=== PATIENT | male | born 1960 | race Caucasian/White ===

== ENCOUNTER 2016-09-23 07:56 | Emergency (ER) | payer OTHER ==
[2016-09-23 08:07] VITALS: BP 107/88; PULSE 98; TEMP 98.1; BMI 30.8
--- NOTE | 2016-09-23 09:20 | PDOC ---
[id number] 4d G TUBE Time Seen by Provider: 09/23/16 08:09 History Source: Correction Records (spoke with nurse) Exam Limitations: No Limitations - History of Present Illness Initial Comments: 09/23/16 09:07 55-year-old male with history of tracheotomy G-tube, and is currently residing at [facility] was sent over for G-tube replacement/evaluation. As per nurse patient had difficulty with receiving free water via gravity and then with a syringe. As per staff some of the meds need to be crushed and unsure if it's meds or not. Patient arrives with no complaints of abdominal pain which he is able to shake his head no when questioned. patient with history of CHF and A. fib. Timing/Duration: 1-3 hours Severity: mild Associated Symptoms: reports: denies symptoms Past History - Past Medical History Allergies/Adverse Reactions: Allergies Allergy/AdvReac Type Severity Reaction Status Date / Time No Known Allergies Allergy Verified 09/23/16 08:07 Home Medications: Ambulatory Orders Albuterol 2.5/Ipratropium 0.5 [Duoneb -] 1 neb NEB Q4H PRN #0 vial 08/17/13 Thyroid [[place] Thyroid] 90 mg PO DAILY #0 tablet 08/17/13 Amino Acids/Protein Hydrolys [Prostat Sugar-Free Packet -] 30 ml GT TID packet 07/29/16 Aspirin Coated [Ecotrin -] 81 mg PO DAILY tablet.ec 07/29/16 Metoclopramide Oral Soln [Reglan Oral Solution -] 10 mg GT TIDAC #0 udc Metoprolol Tartrate Injection [Lopressor Injection -] 5 mg IVPUSH Q4H PRN #0 vial 07/29/16 Polyethylene Glycol 3350 [Miralax 119 gm Btl -] 17 gm NGT DAILY bottle Anemia: No Asthma: No Cancer: No Cardiac Disorders: Yes (CHF, A-Fib) CVA: No COPD: No (trach on ventimask 8L) CHF: Yes Dementia: No Diabetes: No GI Disorders: Yes (gerd) Disorders: No HTN: No Hypercholesterolemia: No Liver Disease: No Seizures: No Thyroid Disease: No - Surgical History Abdominal Surgery: No Appendectomy: No Cardiac Surgery: No Cholecystectomy: No Lung Surgery: No Neurologic Surgery: Yes (brain surgery: subdural hematoma) Orthopedic Surgery: No - Immunization History Immunization Up to Date: No - Psycho/Social/Smoking Cessation Hx Anxiety: No Suicidal Ideation: No Smoking Status: No Smoking History: Unknown if ever smoked Have you smoked in the past 12 months: No Number of Cigarettes Smoked Daily: 0 If you are a former smoker, when did you quit?: 1997 Cigars Per Day: 0 Information on smoking cessation initiated: No Hx Alcohol Use: No Drug/Substance Use Hx: No Substance Use Type: None Hx Substance Use Treatment: No Patient Lives Alone: No Lives with/in: detention Review of Systems - Review of Systems Able to Perform ROS?: Yes Constitutional: No: Symptoms Reported HEENTM: No: Symptoms Reported Respiratory: No: Symptoms reported Cardiac (ROS): No: Symptoms Reported ABD/GI: Yes: See HPI : No: Symptoms Reported Musculoskeletal: No: Symptoms Reported Integumentary: No: Symptoms Reported Neurological: No: Symptoms reported *Physical Exam - Vital Signs Last Vital Signs Temp Pulse Resp BP Pulse Ox 98.1 F 98 H 18 107/88 93 L 09/23/16 08:02 09/23/16 08:02 09/23/16 08:02 09/23/16 08:02 09/23/16 08:02 - Physical Exam General Appearance: Yes: Nourished, Appropriately Dressed. No: Apparent Distress HEENT: positive: EOMI, DEMETRIO. negative: Pale Conjunctivae Neck: positive: Supple Respiratory/Chest: positive: Lungs Clear, Normal Breath Sounds, Other ( tracheostomy with copious amount of clear secretions). negative: Respiratory Distress, Accessory Muscle Use, Crackles, Rhonchi, Wheezing Cardiovascular: positive: Regular Rhythm, Regular Rate. negative: Murmur Gastrointestinal/Abdominal: positive: Soft, Other (left upper quadrant G-tube site intact). negative: Tenderness Extremity: positive: Normal Capillary Refill. negative: Pedal Edema Integumentary: positive: Normal Color, Warm, Moist Neurologic: positive: Normal Mood/Affect, Motor Strength 5/5 (upper extremities mobile) ED Treatment Course - RADIOLOGY Radiology Studies Ordered: Category Date Time Status CHEST X-RAY PORTABLE* [RAD] Stat Radiology 09/23/16 08:33 Taken Medical Decision Making - Medical Decision Making 09/23/16 09:03 She was sent here for G-tube replacement/evaluation. As per nurse's patient was unable to receive [place] via G-tube secondary to increased pressure. Patient upon arrival required suctioning by the respiratory therapist O2 sat was 93% on Venturi mask. Patient then required a second suctioning by me which I received a thick clear whitish secretions via trach using a 14 Thai catheter. I spoke to nurse for the possibility of patient being placed on [place] which will decrease patient secretions. Chest x-ray will be obtained secondary to O2 sat although nurse states this is patient's baseline. As per nurse patient is currently on Levaquin for a left lower lobe infiltrate. 09/23/16 09:35 Chest x-ray shows no acute findings. Patient will be sent back to [facility]. *DC/Admit/Observation/Transfer Diagnosis at time of Disposition: Gastrostomy tube dependent - Discharge Dispostion Disposition: HOME Condition at time of disposition: Good - Referrals Referrals: Nicholas Layton MD [Primary Care Provider] - - Patient Instructions Printed Discharge Instructions: DI on Tracheotomy-Adult, How to Care for Your PEG Tube Additional Instructions: The G-tube was patent and was able to withdraw fluids without difficulty. I do recommend considering a medication to decrease his tracheostomy secretions such as Robinul as he requires frequent suctioning. Chest x-ray shows no acute process.
== END 2016-09-23 10:30 ==
LOC: JER 07:56
DX: Z43.0 Encounter for attention to tracheostomy (principal); I48.91 Unspecified atrial fibrillation; I50.9 Heart failure, unspecified
CPT/HCPCS: 71010-TC; 99282-25

== ENCOUNTER 2016-10-14 16:15 | Inpatient (IN) | payer OTHER ==
[2016-10-14 16:42] VITALS: BMI 25.7
--- NOTE | 2016-10-14 17:31 | PDOC ---
[id number] Source: Family, [facility] Records Exam Limitations: Clinical Condition - History of Present Illness Timing/Duration: reports: changing over time Severity: reports: moderate Possible Cause: Yes: frequent episodes Modifying Factors: improves with: other (pt hsa had increasing amount of trach secretions and required frequent suctioning of his trach) <Марина Lockhart - Last Filed: 10/20/16 23:48> - General Chief Complaint: Trach Tube Replacement Stated Complaint: TRACH CHANGE Past History - Past Medical History Anemia: No Asthma: No Cancer: No Cardiac Disorders: Yes (CHF, A-Fib) CVA: No COPD: No (trach on ventimask 8L) CHF: Yes Dementia: No Diabetes: No GI Disorders: Yes (gerd) Disorders: No HTN: No Hypercholesterolemia: No Liver Disease: No Seizures: No Thyroid Disease: No - Surgical History Abdominal Surgery: No Appendectomy: No Cardiac Surgery: No Cholecystectomy: No Lung Surgery: No Neurologic Surgery: Yes (brain surgery: subdural hematoma) Orthopedic Surgery: No - Immunization History Immunization Up to Date: Yes - Psycho/Social/Smoking Cessation Hx Anxiety: No Suicidal Ideation: No Smoking Status: No Smoking History: Unknown if ever smoked Have you smoked in the past 12 months: No Number of Cigarettes Smoked Daily: 0 If you are a former smoker, when did you quit?: 1997 Cigars Per Day: 0 Hx Alcohol Use: No Drug/Substance Use Hx: No Substance Use Type: None Hx Substance Use Treatment: No <Arley Andersen - Last Filed: 10/17/16 16:22> <Марина Lockhart - Last Filed: 10/20/16 23:48> - Past Medical History Allergies/Adverse Reactions: Allergies Allergy/AdvReac Type Severity Reaction Status Date / Time No Known Allergies Allergy Verified 09/23/16 08:07 Home Medications: Ambulatory Orders Aa/Hydrolyzed Collagen, Whey [Lps 15-30 Liquid] 960 ml PO DAILY 10/14/16 Aspirin [ASA -] 81 mg GT DAILY 10/14/16 Budesonide [Pulmicort 0.25 mg Nebulizer -] 1 neb PO BID 10/14/16 Enoxaparin [Lovenox -] 40 mg SQ DAILY 10/14/16 Thyroid [[place] Thyroid] 60 mg PO DAILY 10/14/16 Acetaminophen [Tylenol .Regular Strength -] 650 mg PO Q6H PRN #0 tablet Albuterol 2.5/Ipratropium 0.5 [Duoneb -] 1 amp NEB QIDR amp 10/17/16 Prednisone 10 mg GT DAILY 10/18/16 *Physical Exam - Vital Signs Last Vital Signs Temp Pulse Resp BP Pulse Ox 99.5 F 110 H 20 105/72 93 L 10/14/16 16:37 10/14/16 16:37 10/14/16 16:37 10/14/16 16:37 10/14/16 16:37 <Arley Andersen - Last Filed: 10/17/16 16:22> - Vital Signs Last Vital Signs Temp Pulse Resp BP Pulse Ox 99.5 F 110 H 20 105/72 93 L 10/14/16 16:37 10/14/16 16:37 10/14/16 16:37 10/14/16 16:37 10/14/16 16:37 <Марина Lockhart - Last Filed: 10/20/16 23:48> ED Treatment Course - LABORATORY CBC & Chemistry Diagram: 10/17/16 06:00 10/15/16 06:30 <Arley Andersen - Last Filed: 10/17/16 16:22> - LABORATORY CBC & Chemistry Diagram: 10/17/16 06:00 10/15/16 06:30 - RADIOLOGY Radiology Studies Ordered: Category Date Time Status CHEST X-RAY PORTABLE* [RAD] Stat Radiology 10/14/16 17:39 Taken <Марина Lockhart - Last Filed: 10/20/16 23:48> *DC/Admit/Observation/Transfer - Discharge Dispostion Admit: Yes <Arley Andersen - Last Filed: 10/17/16 16:22> <Марина Lockhart - Last Filed: 10/20/16 23:48> Diagnosis at time of Disposition: Muscular dystrophy, Gastrostomy tube dependent, COPD exacerbation - Discharge Dispostion Disposition: [facility]ILITY Condition at time of disposition: Guarded
--- NOTE | 2016-10-14 17:59 | PDOC ---
History of Present Illness <Марина Lockhart - Last Filed: 10/14/16 20:30> - History of Present Illness Initial Comments: 10/14/16 18:07 The patient is a 55 year old male, with a significant past medical history of tracheostomy G-Tube, Afib, and CHF, who presents to the emergency department via ems from [facility] to have his tracheotomy tube suctioned and G- tube changed. He denies chest pain, shortness of breath, headache and dizziness. He denies fever, chills, nausea, vomit, diarrhea and constipation. He denies dysuria, frequency, urgency and hematuria. Allergies: NKDA PCP - Dr. Nicholas Layton <Nataly Nevarez - Last Filed: 10/14/16 21:42> - General Chief Complaint: Trach Tube Replacement Stated Complaint: TRACH CHANGE Past History - Past Medical History Anemia: No Asthma: No Cancer: No Cardiac Disorders: Yes (CHF, A-Fib) CVA: No COPD: No (trach on ventimask 8L) CHF: Yes Dementia: No Diabetes: No GI Disorders: Yes (gerd) Disorders: No HTN: No Hypercholesterolemia: No Liver Disease: No Seizures: No Thyroid Disease: No - Surgical History Abdominal Surgery: No Appendectomy: No Cardiac Surgery: No Cholecystectomy: No Lung Surgery: No Neurologic Surgery: Yes (brain surgery: subdural hematoma) Orthopedic Surgery: No - Immunization History Immunization Up to Date: Yes - Psycho/Social/Smoking Cessation Hx Anxiety: No Suicidal Ideation: No Smoking Status: No Smoking History: Unknown if ever smoked Have you smoked in the past 12 months: No Number of Cigarettes Smoked Daily: 0 If you are a former smoker, when did you quit?: 1998 Cigars Per Day: 0 Hx Alcohol Use: No Drug/Substance Use Hx: No Substance Use Type: None Hx Substance Use Treatment: No <Марина Lockhart - Last Filed: 10/14/16 20:30> <Nataly Nevarez - Last Filed: 10/14/16 21:42> - Past Medical History Allergies/Adverse Reactions: Allergies Allergy/AdvReac Type Severity Reaction Status Date / Time No Known Allergies Allergy Verified 09/23/16 08:07 Home Medications: Ambulatory Orders Aa/Hydrolyzed Collagen, Whey [Lps 15-30 Liquid] 960 ml PO DAILY 10/14/16 Acetaminophen 325 mg PO PRN 10/14/16 Albuterol 0.083% Nebulizer Tonia [Ventolin 0.083% Nebulizer Soln -] 1 neb NEB Q6H 10/14/16 Aspirin [ASA -] 81 mg PO DAILY 10/14/16 Budesonide [Pulmicort 0.25 mg -] 1 neb PO BID 10/14/16 Enoxaparin [Lovenox -] 40 mg SQ DAILY 10/14/16 Prednisone 10 mg PO DAILY 10/14/16 Scopolamine Hydrobromide [Transderm-Scop -] 1 patch TD Q3D 10/14/16 Thyroid [[place] Thyroid] 60 mg PO DAILY 10/14/16 Review of Systems - Review of Systems Able to Perform ROS?: No (Trach tube) <Nataly Nevarez - Last Filed: 10/14/16 21:42> *Physical Exam - Vital Signs Last Vital Signs Temp Pulse Resp BP Pulse Ox 99.5 F 110 H 20 105/72 93 L 10/14/16 16:37 10/14/16 16:37 10/14/16 16:37 10/14/16 16:37 10/14/16 16:37 <Марина Lockhart - Last Filed: 10/14/16 20:30> - Vital Signs Last Vital Signs Temp Pulse Resp BP Pulse Ox 99.5 F 110 H 20 105/72 93 L 10/14/16 16:37 10/14/16 16:37 10/14/16 16:37 10/14/16 16:37 10/14/16 16:37 - Physical Exam Comments: 10/14/16 18:08 GENERAL: (+) Patient is awake and alert, mouthing his responses. Well developed, well nourished. No acute distress. HEENT: Normocephalic, atraumatic. PERRLA, EOMI. No conjunctival pallor. Sclera are non- icteric. Moist mucous membranes. Oropharynx is clear. NECK: (+) Intact tracheostomy tube. Nonerythematous,no evidence of cellulitis. Supple. Full ROM. No JVD. Carotid pulses 2+ and symmetric, without bruits. No thyromegaly. No lymphadenopathy. CARDIOVASCULAR: Regular rate and rhythm. No murmurs, rubs, or gallops. Distal pulses are 2+ and symmetric. PULMONARY: (+) Fine bibasilar rales. No evidence of respiratory distress. No wheezing or rhonchi. ABDOMINAL: Soft. Non-tender. Non-distended. No rebound or guarding. No organomegaly. Normoactive bowel sounds. MUSCULOSKELETAL Normal range of motion at all joints. No bony deformities or tenderness. No CVA tenderness. EXTREMITIES: No cyanosis. No clubbing. No edema. No calf tenderness. SKIN: (+) Dry skin on face around nares and eyelid which was cleaned by ER physician. Warm and dry. Normal capillary refill. No rashes. No jaundice. NEUROLOGICAL: Alert, awake, appropriate. Cranial nerves 2-12 intact. Normoreflexic in the upper and lower extremities. Normal speech. Toes are down-going bilaterally. PSYCHIATRIC: Cooperative. Good eye contact. Appropriate mood and affect. <Nataly Nevarez - Last Filed: 10/14/16 21:42> ED Treatment Course - LABORATORY CBC & Chemistry Diagram: 10/14/16 18:46 10/14/16 18:46 - RADIOLOGY Radiology Studies Ordered: Category Date Time Status CHEST X-RAY PORTABLE* [RAD] Stat Radiology 10/14/16 17:39 Taken <Марина Lockhart - Last Filed: 10/14/16 20:30> - LABORATORY CBC & Chemistry Diagram: 10/14/16 18:46 10/14/16 18:46 - RADIOLOGY Radiograph Interpretation: 10/14/16 21:41 CXR was read by Dr. Jose at 18:09 Impression; No interval changes or acute lung disease present. <Nataly Nevarez - Last Filed: 10/14/16 21:42> Medical Decision Making - Medical Decision Making 10/14/16 18:54 55-year-old male with muscular dystrophy brought in by [facility] for increase trach secretions. Patient is afebrile. -Pulse ox was between 91 and 94 Patient is a full code Past medical history significant for muscular dystrophy, COPD and GERD In addition to the trach. Patient has a jejunostomy tube I spoke at length with the investigative writer, Dr. Camara because this patient has been sent to the ER before with the concern of his increased sputum from his trach. He was here on September 23 and had a workup that didn't find any infiltrates and at that time, they mentioned maybe he could be Robinul. I see that he is on scopolamine in an effort to control his secretions. The main concern investigative writer had was that the man's muscular dystrophy, is obviously impeding him from fully expanding his lungs. He can't clear his own secretions , or cough. The chest x-ray. He does have a significantly elevated diaphragm. He may need a long-acting anticholinergic like now, Atrovent, and Spiriva. Today's chest x-ray does show a high diaphragm and so he is not ventilating well. May need mechanical respiratory support in the near for future <Маирна Lockhart - Last Filed: 10/14/16 20:30> - Medical Decision Making 10/14/16 18:09 Dr. Camara was paged at the office at 17:30 requesting a call back for a pulmonology consult. Dr. Camara returned the call at 17:40 and the patients case and history was thoroughly discussed. 10/14/16 20:20 Dr. Layton was paged at this time requesting a call back for a doctor to doctor consult. <Nataly Nevarez - Last Filed: 10/14/16 21:42> *DC/Admit/Observation/Transfer - Discharge Dispostion Admit: Yes <Марина Lockhart - Last Filed: 10/14/16 20:30> - Attestations Scribe Attestion: 10/14/16 18:09 Documentation prepared by Nataly Nevarez, acting as lpn or medical assistant for Марина Lockhart MD <Nataly Nevarez - Last Filed: 10/14/16 21:42> Diagnosis at time of Disposition: Muscular dystrophy, Gastrostomy tube dependent, COPD exacerbation - Referrals Referrals: Nicholas Layton MD [Primary Care Provider] -
[2016-10-14 18:42] LABS: ARTERIAL BLD GAS O2 SATURATION 95.8 % (90-98.9); ARTERIAL BLOOD GAS BASE EXCESS 8.4 meq/l (-2-2); ARTERIAL BLOOD GAS PO2 81.5 mmHg (80-100); ARTERIAL BLOOD GAS pH 7.39 (7.35-7.45)
[2016-10-14 18:43] LABS: ALLENS TEST POSITIVE; ART PUNCT SITE LEFT RADIAL; LPM/O2% 50%; PT. ON O2? YES
[2016-10-14 18:44] LABS: TYPE OF O2 TRACH COLLAR
[2016-10-14] MEDS ORDERED: ALBUTEROL SO4 2.5/IPRATROPIUM 0.5 INH SOL 3 ML VIAL.NEB. NEB ONE (19:10)
[2016-10-14 19:21] LABS: BASOPHIL 0.1 % (0-2.0); EOSINOPHIL 0.1 % (0-4.5); MCH 26.8 pg (25.7-33.7); MEAN CELL VOLUME 83.9 fl (80-96); MEAN PLT VOLUME 9.1 fl (7.5-11.1); NEUTROPHILS 89.1 % (42.8-82.8); PLATELET COUNT 198 K/MM3 (134-434); RDW 16.1 % (11.9-15.9); WHITE BLOOD COUNT 11.5 K/mm3 (4.0-10.0)
[2016-10-14 19:38] LABS: ALBUMIN 3.2 g/dl (3.4-5.0); ANION GAP 6 (8-16); BILIRUBIN,TOTAL 0.4 mg/dL (0.2-1.0); CALCIUM 9.7 mg/dL (8.5-10.1); CO2 36 mmol/L (21-32); CREATININE 0.3 mg/dL (0.7-1.3); GLUCOSE,RANDOM 99 mg/dL (74-106); SGOT/AST 22 U/L (15-37); SGPT/ALT 45 U/L (12-78); TOT PROT 6.6 g/dl (6.4-8.2)
[2016-10-14 19:39] LABS: ALK PHOS 87 U/L (45-117)
[2016-10-14] MEDS ORDERED: ACETAMINOPHEN 325 MG TABLET (FP) PO PRN (20:54)
[2016-10-14] MEDS ORDERED: SCOPOLAMINE HYDROBROMIDE 1 PATCH PATCH.TD72 TD SCH (21:00)
[2016-10-14] MEDS: ALBUTEROL SO4 0.083% IH SOL 2.5 MG/3 ML VIAL.NEB. NEB SCH (21:10)
[2016-10-14] MEDS: methylPREDNISolone NA SUCC 40 MG/1 ML VIAL IVPB SCH (21:14)
[2016-10-14] MEDS: BUDESONIDE 0.25 MG/2ML INH SUSP VIAL NEB SCH (22:10)
[2016-10-14] MEDS: D5-1/2NS+20 MEQ KCL - 1,000 ML IV SCH (23:56)
[2016-10-15] MEDS: ALBUTEROL SO4 2.5/IPRATROPIUM 0.5 INH SOL 3 ML VIAL.NEB. NEB SCH ×4 (00:05→17:50)
[2016-10-15] MEDS: ALBUTEROL SO4 0.083% IH SOL 2.5 MG/3 ML VIAL.NEB. NEB SCH ×4 (02:54→21:05)
[2016-10-15] MEDS: methylPREDNISolone NA SUCC 40 MG/1 ML VIAL IVPB SCH ×4 (03:57→21:46)
[2016-10-15 07:14] LABS: BASOPHIL 0.1 % (0-2.0); MCH 27.8 pg (25.7-33.7); MCHC 33.1 g/dl (32.0-35.9); NEUTROPHILS 93.7 % (42.8-82.8); PLATELET COUNT 191 K/MM3 (134-434); RDW 15.5 % (11.9-15.9)
[2016-10-15 07:38] LABS: ANION GAP 7 (8-16); CALCIUM 9.7 mg/dL (8.5-10.1); CO2 35 mmol/L (21-32); GLUCOSE,RANDOM 151 mg/dL (74-106); SGOT/AST 24 U/L (15-37); SGPT/ALT 48 U/L (12-78)
[2016-10-15 07:40] LABS: ALK PHOS 79 U/L (45-117); BILIRUBIN,TOTAL 0.4 mg/dL (0.2-1.0); CREATININE 0.4 mg/dL (0.7-1.3); TOT PROT 6.5 g/dl (6.4-8.2)
--- NOTE | 2016-10-15 09:19 | HP ---
Admitting History and Physical - Admission History of Present Illness: 55 year old male, with a significant past medical history of tracheostomy G-Tube , Afib, and CHF, who presents to the emergency department via ems from [facility] to have his tracheotomy tube suctioned and G-tube changed. 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) Cardiovascular: Yes: AFIB, CHF Musculoskeletal: Yes: Other (muscular dystrophy) Endocrine: Yes: Hypothyroidism - Smoking History Smoking history: Former smoker Have you smoked in the past 12 months: No Aproximately how many cigarettes per day: 0 If you are a former smoker, when did you quit?: 1997 - Alcohol/Substance Use Hx Alcohol Use: No History of Substance Use: reports: None - Social History ADL: Support Services History of Recent Travel: No Home Medications - Allergies Allergies/Adverse Reactions: Allergies Allergy/AdvReac Type Severity Reaction Status Date / Time No Known Allergies Allergy Verified 09/23/16 08:07 - Home Medications Home Medications: Ambulatory Orders Aa/Hydrolyzed Collagen, Whey [Lps 15-30 Liquid] 960 ml PO DAILY 10/14/16 Acetaminophen 325 mg PO PRN 10/14/16 Albuterol 0.083% Nebulizer Tonia [Ventolin 0.083% Nebulizer Soln -] 1 neb NEB Q6H 10/14/16 Aspirin [ASA -] 81 mg PO DAILY 10/14/16 Budesonide [Pulmicort 0.25 mg -] 1 neb PO BID 10/14/16 Enoxaparin [Lovenox -] 40 mg SQ DAILY 10/14/16 Prednisone 10 mg PO DAILY 10/14/16 Scopolamine Hydrobromide [Transderm-Scop -] 1 patch TD Q3D 10/14/16 Thyroid [[place] Thyroid] 60 mg PO DAILY 10/14/16 Review of Systems - Review of Systems Respiratory: reports: Cough, SOB Gastrointestinal: reports: Other (FEEDING TUBE MLFUNCTION) Neurological: reports: Pre-Existing Deficit, Weakness Physical Examination Vital Signs: Vital Signs Temperature 98.8 F 10/15/16 06:00 Pulse Rate 101 H 10/15/16 06:00 Respiratory Rate 18 10/15/16 06:00 Blood Pressure 100/52 10/15/16 06:00 O2 Sat by Pulse Oximetry (%) 95 10/14/16 21:26 HENT: Yes: Other (TRACH) Cardiovascular: Yes: Regular Rate and Rhythm Respiratory: Yes: Diminished, On Venti-Mask, Rhonchi, Other (TRACH) Gastrointestinal: Yes: Normal Bowel Sounds, Soft, Other (FEEDING TUBE IN PLACE - -FEEDING ON HOLD) Labs: CBC, BMP 10/15/16 06:30 10/15/16 06:30 Problem List - Problems (1) COPD exacerbation Assessment/Plan: NEBS STEROIDS PULM Code(s): J44.1 - CHRONIC OBSTRUCTIVE PULMONARY DISEASE W (ACUTE) EXACERBATION (2) Respiratory failure Assessment/Plan: ASA SHERRY Code(s): J96.90 - RESPIRATORY FAILURE, UNSP, UNSP W HYPOXIA OR HYPERCAPNIA (3) Muscular dystrophy Code(s): G71.0 - MUSCULAR DYSTROPHY (4) Feeding tube dysfunction Assessment/Plan: SURGICAL CONSULT IVF Code(s): T85.598A - [facility] COMPL OF GASTROINTESTINAL PROSTH DEV/GRFT, INIT
[2016-10-15] MEDS ORDERED: PT OWN MED DRAWER 7, Y5N ONE ×2 (09:42→21:54)
[2016-10-15] MEDS: ASPIRIN 81 MG CHEWABLE TABLETS PO SCH (09:44)
[2016-10-15] MEDS: THYROID 60 MG TABLET PO SCH (09:44)
[2016-10-15] MEDS: ENOXAPARIN NA (PORCINE) 40 MG/0.4 ML DISP.SYRIN SQ SCH (09:44)
--- NOTE | 2016-10-15 12:41 | EKG ---
Test Reason : Blood Pressure : / mmHG Vent. Rate : 094 BPM Atrial Rate : 094 BPM P-R Int : 188 ms QRS Dur : 116 ms QT Int : 356 ms P-R-T Axes : 052 -28 018 degrees QTc Int : 445 ms NORMAL SINUS RHYTHM LEFT VENTRICULAR HYPERTROPHY WITH QRS WIDENING ABNORMAL ECG WHEN COMPARED WITH ECG OF 14-OCT-2016 20:46, NO SIGNIFICANT CHANGE WAS FOUND Confirmed by BROOKE CROSS, YAYA ([id number]) on 10/15/2016 12:41:14 PM Referred By: Nigel ALAMO Confirmed By:YAYA COX MD
--- NOTE | 2016-10-15 13:04 | PN ---
Progress Note (short form) - Note Progress Note: PULMONARY CONSULTATION DICTATED 10/15/16 IMP ACUTE ON CHRONIC HYPOXEMIC/HYPERCAPNEIC RESPIRATORY FAILURE S/P TRACH MUSCULAR DYSTROPHY HTN CHF AFIB LEAKY GT PLAN INHALED BRONCHODILATORS O2 STEROIDS PULMONARY TOILET,SUCTIONING VENT SUPPORT IF PT DEVELOPES INCREASED RESP DISTRESS,HYPERCAPNEA DR WILEY Problem List - Problems (1) Feeding tube dysfunction Code(s): T85.598A - [facility] COMPL OF GASTROINTESTINAL PROSTH DEV/GRFT, INIT (2) Gastrostomy tube dependent Code(s): Z93.1 - GASTROSTOMY STATUS (3) Muscular dystrophy Code(s): G71.0 - MUSCULAR DYSTROPHY (4) A-fib Code(s): I48.91 - UNSPECIFIED ATRIAL FIBRILLATION (5) CHF (congestive heart failure) Code(s): I50.9 - HEART FAILURE, UNSPECIFIED (6) Hypoxia Code(s): R09.02 - HYPOXEMIA (7) Respiratory failure Code(s): J96.90 - RESPIRATORY FAILURE, UNSP, UNSP W HYPOXIA OR HYPERCAPNIA (8) Acute on chronic respiratory failure with hypoxia and hypercapnia Code(s): J96.21 - ACUTE AND CHRONIC RESPIRATORY FAILURE WITH HYPOXIA J96.22 - ACUTE AND CHRONIC RESPIRATORY FAILURE WITH HYPERCAPNIA
--- NOTE | 2016-10-15 13:26 | EKG ---
Test Reason : Blood Pressure : / mmHG Vent. Rate : 096 BPM Atrial Rate : 096 BPM P-R Int : 184 ms QRS Dur : 116 ms QT Int : 348 ms P-R-T Axes : 032 -29 028 degrees QTc Int : 439 ms NORMAL SINUS RHYTHM LEFT VENTRICULAR HYPERTROPHY WITH QRS WIDENING ABNORMAL ECG WHEN COMPARED WITH ECG OF 19-JUL-2016 16:03, PREMATURE VENTRICULAR COMPLEXES ARE NO LONGER PRESENT NONSPECIFIC T WAVE ABNORMALITY NO LONGER EVIDENT IN LATERAL LEADS Confirmed by YAYA COX MD ([id number]) on 10/15/2016 1:26:01 PM Referred By: Confirmed By:YAYA COX MD
--- NOTE | 2016-10-15 13:55 | CONS ---
DATE OF CONSULTATION: 10/15/2016 REFERRING PHYSICIAN: Nicholas Layton MD The patient is a 55-year-old male, past medical history of tracheostomy, G-tube, atrial fibrillation, CHF, muscular dystrophy, hypothyroidism, known to me from previous hospitalization as well as assisted followup in the [facility] on October 14 secondary to leak from the tracheostomy tube and GT malfunction. Patient presented to the emergency room with the above. On admission, patient denied complaints of shortness of breath, headaches, chest pain, nausea, vomiting, diaphoresis. Patient was admitted to the floor for further management. Patient apparently, again, has history of respiratory failure, status post tracheostomy, history of muscular dystrophy, status post GT, atrial fibrillation, CHF. Medications prior to admission include acetaminophen, albuterol, aspirin, Pulmicort, Lovenox, prednisone, scopolamine, [place] Thyroid. Current medications include Pulmicort, Solu-Medrol, Tylenol, Lovenox, Transderm, albuterol, DuoNeb, aspirin, and [place] Thyroid. REVIEW OF SYSTEMS: Complains of mild dyspnea. No chest pain, no palpitation, no abdominal discomfort. PHYSICAL EXAMINATION: General: The patient is a well-developed, well-nourished white male, drowsy but in no acute respiratory distress. Vital Signs: He is currently afebrile. Blood pressure is 105/62. Respiratory rate is 18. O2 saturation is 94% on trach collar. HEENT: Normocephalic, atraumatic. Neck: Supple, trachea . Heart: Irregular, with normal S1 S2. Chest: A few scattered bilateral rhonchi. Abdomen: Soft. Bowel sounds are present. Extremities: No cyanosis, edema. LABORATORIES: WBC is 9, hemoglobin 12.3, hematocrit 37.3, platelet count of 191,000. Blood gas: pH of 7.39, pCO2 of 59, pO2 of 81, a bicarbonate of 35, and a saturation of 95.8, that is on 50% trach collar. Chest x-ray reveals elevated right hemidiaphragm but no acute infiltrates and/or effusions. IMPRESSION: 1. Acute on chronic hypoxemic hypercapnic respiratory failure. 2. History of respiratory failure, status post tracheostomy. 3. Congestive heart failure. 4. Atrial fibrillation. 5. History of muscular dystrophy. 6. GT tube. PLAN: Continue inhaled bronchodilator, supplemental O2 via trach, pulmonary toilet, short course of steroids, GI evaluation. JAH WILEY M.D. CRISTÓBAL/[id number]
[2016-10-15] MEDS: BUDESONIDE 0.25 MG/2ML INH SUSP VIAL NEB SCH ×2 (14:26→22:15)
--- NOTE | 2016-10-15 14:42 | CONSULT ---
[id number]- History of Present Illness History of Present Illness: The patient is a 55 yo male who presented to the ER for trach change, increased respiratory secretions and GT evaluation. According to the notes sent by the [facility], the "j-tube" is clogged. He has a history of AFIB, CHF, muscular dystrophy, hypothyroidism. The patient remains afebrile since admission and denies SOB, vomiting, CP, nasuea. He was seen in the ER on 09/23/2016 for an eval of his GT, at that time it was patent. Fluids were aspirated and flushed. The chart history was reviewed and on 07/25/16 a gastrojejuosotmy tube was placed by IR. 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 ROS: Not possible since pt is intubated - Past Surgical History Additional Surgical History: Gastrojejunosotmy tube 07/25/16 by IR at [facility] - Alcohol/Substance Use Hx Alcohol Use: No History of Substance Use: reports: None - Smoking History Smoking history: Former smoker Have you smoked in the past 12 months: No Aproximately how many cigarettes per day: 0 If you are a former smoker, when did you quit?: 1997 - Social History Usual Living Arrangement: Other (he lives in an appartment, she takes care of him. He has Homehealth aid from morning to 1 pm. He is alone from 1-8pm. He doesnt ambulate much as baseline and has garbled speech.) ADL: Support Services History of Recent Travel: No <Dorina Jacinto - Last Filed: 10/15/16 16:03> Home Medications <Dorina Jacinto - Last Filed: 10/15/16 16:03> <Conrad Tinsley - Last Filed: 10/16/16 09:25> - Allergies Allergies/Adverse Reactions: Allergies Allergy/AdvReac Type Severity Reaction Status Date / Time No Known Allergies Allergy Verified 09/23/16 08:07 - Home Medications Home Medications: Ambulatory Orders Aa/Hydrolyzed Collagen, Whey [Lps 15-30 Liquid] 960 ml PO DAILY 10/14/16 Acetaminophen 325 mg PO PRN 10/14/16 Albuterol 0.083% Nebulizer Tonia [Ventolin 0.083% Nebulizer Soln -] 1 neb NEB Q6H 10/14/16 Aspirin [ASA -] 81 mg PO DAILY 10/14/16 Budesonide [Pulmicort 0.25 mg -] 1 neb PO BID 10/14/16 Enoxaparin [Lovenox -] 40 mg SQ DAILY 10/14/16 Prednisone 10 mg PO DAILY 10/14/16 Scopolamine Hydrobromide [Transderm-Scop -] 1 patch TD Q3D 10/14/16 Thyroid [[place] Thyroid] 60 mg PO DAILY 10/14/16 Physical Exam Vital Signs: Vital Signs Temperature 99.1 F 10/15/16 09:36 Pulse Rate 99 H 10/15/16 14:23 Respiratory Rate 18 10/15/16 09:36 Blood Pressure 105/62 10/15/16 09:36 O2 Sat by Pulse Oximetry (%) 96 10/15/16 14:23 Constitutional: Yes: Well Nourished, Calm Neck: Yes: WNL, Supple, Trachea Midline, Other (trach in place) Cardiovascular: Yes: WNL, Regular Rate and Rhythm Respiratory: Yes: WNL, Regular, CTA Bilaterally Gastrointestinal: Yes: WNL, Normal Bowel Sounds, Soft, Other (GT aspirated gatric contents and flused easily. No evidence of leak to tubing or around the tube. No excoriated skin. GT not sutured into place, resistance is met with gentle retraction of tube.). No: Tenderness Labs: CBC, BMP 10/15/16 06:30 10/15/16 06:30 <Dorina Jacinto - Last Filed: 10/15/16 16:03> Vital Signs: Vital Signs Temperature 98.6 F 10/16/16 06:00 Pulse Rate 88 10/16/16 06:00 Respiratory Rate 20 10/16/16 06:00 Blood Pressure 109/59 10/16/16 06:00 O2 Sat by Pulse Oximetry (%) 92 L 10/15/16 21:00 Labs: CBC, BMP 10/15/16 06:30 10/15/16 06:30 <Conrad Tinsley - Last Filed: 10/16/16 09:25> Problem List - Problems (1) Feeding tube dysfunction Assessment/Plan: Gatric tube appears to be the stomach at this time. D/w Dr. Tinsley and IR consult placed for the evaluation of tube placement and function. This tube was placed by IR on 07/25/16. Cont npo until evaluated. The tube is actually a gastojejunostomy tube. Code(s): T85.598A - [facility] COMPL OF GASTROINTESTINAL PROSTH DEV/GRFT, INIT <Dorina Jacinto - Last Filed: 10/15/16 16:03> Assessment/Plan Agree Patient had jejunostomy placement by IR 07/25/16 Placed consult for IR evaluation of tube May need tube study versus replacement of catheter Thank you <Conrad Tinsley - Last Filed: 10/16/16 09:25>
[2016-10-15] MEDS: D5-1/2NS+20 MEQ KCL - 1,000 ML IV SCH (19:04)
[2016-10-16] MEDS: ALBUTEROL SO4 2.5/IPRATROPIUM 0.5 INH SOL 3 ML VIAL.NEB. NEB SCH ×4 (00:14→23:10)
[2016-10-16] MEDS: methylPREDNISolone NA SUCC 40 MG/1 ML VIAL IVPB SCH ×4 (03:27→20:38)
[2016-10-16] MEDS: ALBUTEROL SO4 0.083% IH SOL 2.5 MG/3 ML VIAL.NEB. NEB SCH (03:35)
[2016-10-16] MEDS ORDERED: ALBUTEROL SO4 0.083% IH SOL 2.5 MG/3 ML VIAL.NEB. NEB PRN (09:48)
--- NOTE | 2016-10-16 10:32 | PN ---
Progress Note, Physician Chief Complaint: increased copious secretions - Current Medication List Current Medications: Active Medications Acetaminophen (Tylenol -) 650 mg PO Q4H PRN PRN Reason: FEVER OR PAIN Albuterol Sulfate (Ventolin 0.083% Nebulizer Soln -) 1 amp NEB Q6H PRN PRN Reason: COUGH Albuterol/Ipratropium (Duoneb -) 1 amp NEB QIDR [facility] Last Admin: 10/16/16 06:25 Dose: 1 amp Aspirin (Asa -) 81 mg PO DAILY [facility] Last Admin: 10/15/16 09:44 Dose: Not Given Budesonide (Pulmicort 0.25 Mg Nebulizer -) 1 amp NEB BID [facility] Last Admin: 10/15/16 22:15 Dose: 1 amp Enoxaparin Sodium (Lovenox -) 40 mg SQ DAILY [facility] Last Admin: 10/15/16 09:44 Dose: 40 mg Potassium Chloride/Dextrose/Sod Cl (D5-1/2ns+20 Meq Kcl -) 1,000 mls @ 75 mls/ hr IV ASDIR [facility] Last Admin: 10/15/16 19:04 Dose: 75 mls/hr Methylprednisolone Sodium Succinate (Solu-Medrol -) 40 mg IVPB Q6H-IV [facility] Last Admin: 10/16/16 08:21 Dose: 40 mg Scopolamine HBr (Transderm-Scop -) 2 patch TD Q3D [facility] Thyroid ([place] Thyroid -) 60 mg PO DAILY [facility] Last Admin: 10/15/16 09:44 Dose: Not Given - Objective Vital Signs: Vital Signs Temperature 98.6 F 10/16/16 06:00 Pulse Rate 88 10/16/16 06:00 Respiratory Rate 20 10/16/16 06:00 Blood Pressure 109/59 10/16/16 06:00 O2 Sat by Pulse Oximetry (%) 92 L 10/15/16 21:00 Constitutional: Yes: Calm Neck: Yes: Other (trach) Cardiovascular: Yes: Regular Rate and Rhythm, S1, S2 Respiratory: Yes: Rhonchi Gastrointestinal: Yes: Normal Bowel Sounds, Soft, Other (j tube) Edema: No Neurological: Yes: Pre-Existing Deficit Labs: CBC, BMP 10/15/16 06:30 10/15/16 06:30 Problem List - Problems (1) Acute on chronic respiratory failure with hypoxia and hypercapnia Assessment/Plan: pulmtoilet scopolomine patch steroids bronchodilaotrs oxygen Code(s): J96.21 - ACUTE AND CHRONIC RESPIRATORY FAILURE WITH HYPOXIA J96.22 - ACUTE AND CHRONIC RESPIRATORY FAILURE WITH HYPERCAPNIA (2) Feeding tube dysfunction Assessment/Plan: IR appreicate surgical consult eval today Code(s): T85.598A - [facility] COMPL OF GASTROINTESTINAL PROSTH DEV/GRFT, INIT (3) A-fib Assessment/Plan: asa no ac sec to SDH Code(s): I48.91 - UNSPECIFIED ATRIAL FIBRILLATION (4) Hypothyroid Assessment/Plan: tsh check thyroid Code(s): E03.9 - HYPOTHYROIDISM, UNSPECIFIED (5) Muscular dystrophy Assessment/Plan: trach and j tube ppi dvt ppx Code(s): G71.0 - MUSCULAR DYSTROPHY
[2016-10-16] MEDS: BUDESONIDE 0.25 MG/2ML INH SUSP VIAL NEB SCH ×2 (10:51→22:30)
--- NOTE | 2016-10-16 11:19 | PN ---
Progress Note (short form) - Note Progress Note: NAD on 50% VM. Copious tarcheal secretions. Intake & Output 10/13/16 10/14/16 10/15/16 10/16/16 23:59 23:59 23:59 23:59 Intake Total 0 1100 1050 Balance 0 1100 1050 Weight 190 lb 189 lb 6 oz 189 lb 2 oz Last Vital Signs Temp Pulse Resp BP Pulse Ox 97.8 F 68 20 100/63 92 L 10/16/16 06:00 10/16/16 06:00 10/16/16 06:00 10/16/16 06:00 10/15/16 21:00 Constitutional: Yes: NAD on Trach collar Neck: Yes: Other (trach) Cardiovascular: Yes: Regular Rate and Rhythm, S1, S2 Respiratory: Yes: Rhonchi Gastrointestinal: Yes: Normal Bowel Sounds, Soft, Other (j tube) Edema: No Neurological: Yes: Pre-Existing Deficit Problem List - Problems (1) Feeding tube dysfunction Code(s): T85.598A - [facility] COMPL OF GASTROINTESTINAL PROSTH DEV/GRFT, INIT (2) Gastrostomy tube dependent Code(s): Z93.1 - GASTROSTOMY STATUS (3) Muscular dystrophy Code(s): G71.0 - MUSCULAR DYSTROPHY (4) A-fib Code(s): I48.91 - UNSPECIFIED ATRIAL FIBRILLATION (5) CHF (congestive heart failure) Code(s): I50.9 - HEART FAILURE, UNSPECIFIED (6) Hypoxia Code(s): R09.02 - HYPOXEMIA (7) Respiratory failure Code(s): J96.90 - RESPIRATORY FAILURE, UNSP, UNSP W HYPOXIA OR HYPERCAPNIA (8) Acute on chronic respiratory failure with hypoxia and hypercapnia Code(s): J96.21 - ACUTE AND CHRONIC RESPIRATORY FAILURE WITH HYPOXIA J96.22 - ACUTE AND CHRONIC RESPIRATORY FAILURE WITH HYPERCAPNIA IMP: ACUTE ON CHRONIC HYPOXEMIC/HYPERCAPNEIC RESPIRATORY FAILURE (?) TRACHEITIS S/P TRACH MUSCULAR DYSTROPHY HTN CHF AFIB LEAKY GT PLAN:INHALED BRONCHODILATORS O2 STEROIDS PULMONARY TOILET / SUCTIONING VENT SUPPORT IF PT DEVELOPS INCREASED RESP DISTRESS,HYPERCAPNEA DR DUPONT
[2016-10-16] MEDS ORDERED: SCOPOLAMINE HYDROBROMIDE 1 PATCH PATCH.TD72 TD SCH (11:30)
[2016-10-16] MEDS ORDERED: PT OWN MED DRAWER 7, Y5N ONE (12:06)
[2016-10-16] MEDS: ASPIRIN 81 MG CHEWABLE TABLETS PO SCH (12:11)
[2016-10-16] MEDS: ENOXAPARIN NA (PORCINE) 40 MG/0.4 ML DISP.SYRIN SQ SCH (12:11)
[2016-10-16] MEDS: THYROID 60 MG TABLET PO SCH (12:12)
[2016-10-16] MEDS ORDERED: BUDESONIDE 0.5 MG/2 ML INH SUSP VIAL NEB ONE (22:04)
[2016-10-17] MEDS: methylPREDNISolone NA SUCC 40 MG/1 ML VIAL IVPB SCH ×3 (03:30→14:39)
[2016-10-17] MEDS: ALBUTEROL SO4 2.5/IPRATROPIUM 0.5 INH SOL 3 ML VIAL.NEB. NEB SCH ×3 (06:35→18:02)
--- NOTE | 2016-10-17 07:25 | PN ---
Progress Note, Physician Chief Complaint: CALM - Current Medication List Current Medications: Active Medications Acetaminophen (Tylenol -) 650 mg PO Q4H PRN PRN Reason: FEVER OR PAIN Albuterol Sulfate (Ventolin 0.083% Nebulizer Soln -) 1 amp NEB Q6H PRN PRN Reason: COUGH Albuterol/Ipratropium (Duoneb -) 1 amp NEB QIDR [facility] Last Admin: 10/16/16 23:10 Dose: 1 amp Aspirin (Asa -) 81 mg PO DAILY [facility] Last Admin: 10/16/16 12:11 Dose: 81 mg Budesonide (Pulmicort 0.25 Mg Nebulizer -) 1 amp NEB BID [facility] Last Admin: 10/16/16 22:30 Dose: 1 amp Enoxaparin Sodium (Lovenox -) 40 mg SQ DAILY [facility] Last Admin: 10/16/16 12:11 Dose: 40 mg Methylprednisolone Sodium Succinate (Solu-Medrol -) 40 mg IVPB Q6H-IV [facility] Last Admin: 10/17/16 03:30 Dose: 40 mg Scopolamine HBr (Transderm-Scop -) 1 patch TD Q3D [facility] Last Admin: 10/16/16 12:12 Dose: 1 patch Thyroid ([place] Thyroid -) 60 mg PO DAILY [facility] Last Admin: 10/16/16 12:12 Dose: 60 mg - Objective Vital Signs: Vital Signs Temperature 98.5 F 10/17/16 06:00 Pulse Rate 80 10/17/16 06:00 Respiratory Rate 20 10/17/16 06:00 Blood Pressure 100/64 10/17/16 06:00 O2 Sat by Pulse Oximetry (%) 95 10/16/16 19:21 Constitutional: Yes: Calm HENT: Yes: Other (TRACH/VENT) Cardiovascular: Yes: WNL Respiratory: Yes: Other (UPPER AIRWAY CONGESTION) Edema: No Labs: CBC, BMP 10/15/16 06:30 Problem List - Problems (1) Acute on chronic respiratory failure with hypoxia and hypercapnia Code(s): J96.21 - ACUTE AND CHRONIC RESPIRATORY FAILURE WITH HYPOXIA J96.22 - ACUTE AND CHRONIC RESPIRATORY FAILURE WITH HYPERCAPNIA (2) Feeding tube dysfunction Code(s): T85.598A - [facility] COMPL OF GASTROINTESTINAL PROSTH DEV/GRFT, INIT (3) Hypothyroid Code(s): E03.9 - HYPOTHYROIDISM, UNSPECIFIED (4) Muscular dystrophy Code(s): G71.0 - MUSCULAR DYSTROPHY (5) A-fib Code(s): I48.91 - UNSPECIFIED ATRIAL FIBRILLATION Assessment/Plan (1) Acute on chronic respiratory failure with hypoxia and hypercapnia Assessment/Plan: pulm toilet scopolomine patch steroids bronchodilaotrs oxygen pulm on case -> gi & ent consulted to eval possible trach problem Code(s): J96.21 - ACUTE AND CHRONIC RESPIRATORY FAILURE WITH HYPOXIA J96.22 - ACUTE AND CHRONIC RESPIRATORY FAILURE WITH HYPERCAPNIA (2) Feeding tube dysfunction Assessment/Plan: changed appreicate surgical consult gi consulted Code(s): T85.598A - [facility] COMPL OF GASTROINTESTINAL PROSTH DEV/GRFT, INIT (3) A-fib Assessment/Plan: asa no ac sec to SDH Code(s): I48.91 - UNSPECIFIED ATRIAL FIBRILLATION (4) Hypothyroid Assessment/Plan: tsh check -> f/u Code(s): E03.9 - HYPOTHYROIDISM, UNSPECIFIED (5) Muscular dystrophy Assessment/Plan: trach j tube -> changed ppi dvt ppx Code(s): G71.0 - MUSCULAR DYSTROPHY [employer]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
[2016-10-17 07:27] LABS: BASOPHIL 0.1 % (0-2.0); MCH 27.4 pg (25.7-33.7); MCHC 32.7 g/dl (32.0-35.9); MEAN CELL VOLUME 83.9 fl (80-96); NEUTROPHILS 87.5 % (42.8-82.8); PLATELET COUNT 169 K/MM3 (134-434); RDW 15.8 % (11.9-15.9); WHITE BLOOD COUNT 6.1 K/mm3 (4.0-10.0)
--- NOTE | 2016-10-17 08:30 | PN ---
Progress Note (short form) - Note Progress Note: No acute events Gastrojejunostomy tube replaced by IR AVSS GJ tube in place No surgical intervention Thank you
[2016-10-17] MEDS ORDERED: PT OWN MED DRAWER 7, Y5N ONE ×2 (09:01→10:24)
[2016-10-17] MEDS: THYROID 60 MG TABLET PO SCH (09:22)
[2016-10-17] MEDS: ENOXAPARIN NA (PORCINE) 40 MG/0.4 ML DISP.SYRIN SQ SCH (09:22)
[2016-10-17] MEDS: ASPIRIN 81 MG CHEWABLE TABLETS PO SCH (09:22)
[2016-10-17] MEDS: BUDESONIDE 0.25 MG/2ML INH SUSP VIAL NEB SCH (10:45)
--- NOTE | 2016-10-17 14:54 | PN ---
Progress Note, Physician History of Present Illness: pulmonary alert,nad,+tracheal secretions - Current Medication List Current Medications: Active Medications Acetaminophen (Tylenol -) 650 mg PO Q4H PRN PRN Reason: FEVER OR PAIN Albuterol Sulfate (Ventolin 0.083% Nebulizer Soln -) 1 amp NEB Q6H PRN PRN Reason: COUGH Albuterol/Ipratropium (Duoneb -) 1 amp NEB QIDR [facility] Last Admin: 10/17/16 11:56 Dose: 1 amp Aspirin (Asa -) 81 mg PO DAILY [facility] Last Admin: 10/17/16 09:22 Dose: 81 mg Budesonide (Pulmicort 0.25 Mg Nebulizer -) 1 amp NEB BID [facility] Last Admin: 10/17/16 10:45 Dose: 1 amp Enoxaparin Sodium (Lovenox -) 40 mg SQ DAILY [facility] Last Admin: 10/17/16 09:22 Dose: 40 mg Methylprednisolone Sodium Succinate (Solu-Medrol -) 40 mg IVPB Q6H-IV [facility] Last Admin: 10/17/16 14:39 Dose: 40 mg Scopolamine HBr (Transderm-Scop -) 1 patch TD Q3D [facility] Last Admin: 10/16/16 12:12 Dose: 1 patch Thyroid ([place] Thyroid -) 60 mg PO DAILY [facility] Last Admin: 10/17/16 09:22 Dose: 60 mg - Objective Vital Signs: Vital Signs Temperature 97.2 F L 10/17/16 10:00 Pulse Rate 79 10/17/16 10:45 Respiratory Rate 20 10/17/16 10:00 Blood Pressure 111/82 10/17/16 10:00 O2 Sat by Pulse Oximetry (%) 97 10/17/16 10:45 Constitutional: Yes: Well Nourished, Calm Eyes: Yes: WNL HENT: Yes: WNL Neck: Yes: Supple (trach) Cardiovascular: Yes: Regular Rate and Rhythm, S1, S2 Respiratory: Yes: Rhonchi Gastrointestinal: Yes: Normal Bowel Sounds, Soft Extremities: Yes: WNL Edema: No Labs: CBC, BMP Problem List - Problems (1) Feeding tube dysfunction Code(s): T85.598A - [facility] COMPL OF GASTROINTESTINAL PROSTH DEV/GRFT, INIT (2) Gastrostomy tube dependent Code(s): Z93.1 - GASTROSTOMY STATUS (3) Muscular dystrophy Code(s): G71.0 - MUSCULAR DYSTROPHY (4) A-fib Code(s): I48.91 - UNSPECIFIED ATRIAL FIBRILLATION (5) CHF (congestive heart failure) Code(s): I50.9 - HEART FAILURE, UNSPECIFIED (6) Hypoxia Code(s): R09.02 - HYPOXEMIA (7) Respiratory failure Code(s): J96.90 - RESPIRATORY FAILURE, UNSP, UNSP W HYPOXIA OR HYPERCAPNIA (8) Acute on chronic respiratory failure with hypoxia and hypercapnia Code(s): J96.21 - ACUTE AND CHRONIC RESPIRATORY FAILURE WITH HYPOXIA J96.22 - ACUTE AND CHRONIC RESPIRATORY FAILURE WITH HYPERCAPNIA Assessment/Plan IMP ACUTE ON CHRONIC HYPOXEMIC/HYPERCAPNEIC RESPIRATORY FAILURE S/P TRACH MUSCULAR DYSTROPHY HTN CHF AFIB LEAKY GT PLAN INHALED BRONCHODILATORS O2 STEROID taper PULMONARY TOILET,SUCTIONING VENT SUPPORT IF PT DEVELOPES INCREASED RESP DISTRESS,HYPERCAPNEA DR WILEY Problem List - Problems (1) Feeding tube dysfunction Code(s): T85.598A - [facility] COMPL OF GASTROINTESTINAL PROSTH DEV/GRFT, INIT (2) Gastrostomy tube dependent Code(s): Z93.1 - GASTROSTOMY STATUS (3) Muscular dystrophy Code(s): G71.0 - MUSCULAR DYSTROPHY (4) A-fib Code(s): I48.91 - UNSPECIFIED ATRIAL FIBRILLATION (5) CHF (congestive heart failure) Code(s): I50.9 - HEART FAILURE, UNSPECIFIED (6) Hypoxia Code(s): R09.02 - HYPOXEMIA (7) Respiratory failure Code(s): J96.90 - RESPIRATORY FAILURE, UNSP, UNSP W HYPOXIA OR HYPERCAPNIA (8) Acute on chronic respiratory failure with hypoxia and hypercapnia Code(s): J96.21 - ACUTE AND CHRONIC RESPIRATORY FAILURE WITH HYPOXIA J96.22 - ACUTE AND CHRONIC RESPIRATORY FAILURE WITH HYPERCAPNIA
--- NOTE | 2016-10-17 15:38 | DS ---
Physical Examination Vital Signs: Vital Signs Temperature 97.2 F L 10/17/16 10:00 Pulse Rate 78 10/17/16 14:56 Respiratory Rate 20 10/17/16 10:00 Blood Pressure 111/82 10/17/16 10:00 O2 Sat by Pulse Oximetry (%) 96 10/17/16 14:56 Neck: Yes: Other (VENT/TRACH) Cardiovascular: Yes: Regular Rate and Rhythm, S1, S2 Respiratory: Yes: Diminished (UPPER AIRWAY CONGESTION) Gastrointestinal: Yes: Normal Bowel Sounds, Soft Edema: No Labs: CBC, BMP 10/17/16 06:00 10/15/16 06:30 Discharge Summary Reason For Visit: GASTROSTOMY TUBE DEPENDENT,MUSCULAR DYSTROPHY Current Active Problems Acute on chronic respiratory failure with hypoxia and hypercapnia (Acute) COPD exacerbation (Acute) Feeding tube dysfunction (Acute) Gastrostomy tube dependent (Acute) Hypothyroid (Acute) Muscular dystrophy (Acute) Hospital Course: (1) Acute on chronic respiratory failure with hypoxia and hypercapnia Assessment/Plan: pulm toilet scopolomine patch steroids iv -> po bronchodilaotrs oxygen pulm on case ent evaluated trach -> no change planned Code(s): J96.21 - ACUTE AND CHRONIC RESPIRATORY FAILURE WITH HYPOXIA J96.22 - ACUTE AND CHRONIC RESPIRATORY FAILURE WITH HYPERCAPNIA (2) Feeding tube dysfunction Assessment/Plan: changed appreicate surgical consult gi consulted Code(s): T85.598A - [facility] COMPL OF GASTROINTESTINAL PROSTH DEV/GRFT, INIT (3) A-fib Assessment/Plan: asa no ac sec to SDH Code(s): I48.91 - UNSPECIFIED ATRIAL FIBRILLATION (4) Hypothyroid Assessment/Plan: tsh check -> f/u Code(s): E03.9 - HYPOTHYROIDISM, UNSPECIFIED (5) Muscular dystrophy Assessment/Plan: trach j tube -> changed ppi dvt ppx Code(s): G71.0 - MUSCULAR DYSTROPHY DISCHARGE TO [facility] Condition: Stable - Instructions Referrals: Nicholas Layton MD [Primary Care Provider] - Disposition: [facility] - Home Medications Comprehensive Discharge Medication List: Ambulatory Orders Aa/Hydrolyzed Collagen, Whey [Lps 15-30 Liquid] 960 ml PO DAILY 10/14/16 Acetaminophen 325 mg PO PRN 10/14/16 Albuterol 0.083% Nebulizer Tonia [Ventolin 0.083% Nebulizer Soln -] 1 neb NEB Q6H 10/14/16 Aspirin [ASA -] 81 mg PO DAILY 10/14/16 Budesonide [Pulmicort 0.25 mg -] 1 neb PO BID 10/14/16 Enoxaparin [Lovenox -] 40 mg SQ DAILY 10/14/16 Prednisone 10 mg PO DAILY 10/14/16 Scopolamine Hydrobromide [Transderm-Scop -] 1 patch TD Q3D 10/14/16 Thyroid [[place] Thyroid] 60 mg PO DAILY 10/14/16
[2016-10-17 15:48] VITALS: BP 107/77; TEMP 98.7
--- NOTE | 2016-10-17 15:53 | CON.ENT ---
Consult Consult Specialty:: ENT Referred by:: Dr. Bronson Reason for Consultation:: tracheotomy - History of Present Illness Chief Complaint: has tracheotomy History of Present Illness: 55 yo M with hx respiratory failiure June 2016, was intubated, then tracheotomy performed by Dr. Zimmer (Thoracic surgery). pt was then discharged from hospital to a facility. recently admitted to [facility], had G tube changed. is not on ventilator, breathing spontaneously. 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 ROS: Not possible since pt is intubated - Past Surgical History Additional Surgical History: Gastrojejunosotmy tube 07/25/16 by IR at [facility] - Alcohol/Substance Use Hx Alcohol Use: No History of Substance Use: reports: None - Smoking History Smoking history: Former smoker Have you smoked in the past 12 months: No Aproximately how many cigarettes per day: 0 If you are a former smoker, when did you quit?: 1997 - Social History Usual Living Arrangement: Other (he lives in an appartment, she takes care of him. He has Homehealth aid from morning to 1 pm. He is alone from 1-8pm. He doesnt ambulate much as baseline and has garbled speech.) ADL: Support Services History of Recent Travel: No Home Medications - Allergies Allergies/Adverse Reactions: Allergies Allergy/AdvReac Type Severity Reaction Status Date / Time No Known Allergies Allergy Verified 09/23/16 08:07 - Home Medications Home Medications: Ambulatory Orders Aa/Hydrolyzed Collagen, Whey [Lps 15-30 Liquid] 960 ml PO DAILY 10/14/16 Aspirin [ASA -] 81 mg PO DAILY 10/14/16 Budesonide [Pulmicort 0.25 mg -] 1 neb PO BID 10/14/16 Enoxaparin [Lovenox -] 40 mg SQ DAILY 10/14/16 Thyroid [[place] Thyroid] 60 mg PO DAILY 10/14/16 Acetaminophen [Tylenol .Regular Strength -] 650 mg PO Q6H PRN #0 tablet Albuterol 2.5/Ipratropium 0.5 [Duoneb -] 1 amp NEB QIDR amp 10/17/16 Prednisone 10 mg PO DAILY #32 10/17/16 Scopolamine Hydrobromide [Transderm-Scop -] 1 patch TD Q3D patch.td72 10/17/16 Scopolamine Hydrobromide [Transderm-Scop -] 1 patch TD Q3D patch.td72 10/17/16 Physical Exam-ENT Vital Signs: Vital Signs Temperature 97.2 F L 10/17/16 10:00 Pulse Rate 78 10/17/16 14:56 Respiratory Rate 20 10/17/16 10:00 Blood Pressure 111/82 10/17/16 10:00 O2 Sat by Pulse Oximetry (%) 96 10/17/16 14:56 Constitutional: Yes: No Distress, Calm Head: Yes: WNL Face: Yes: WNL Eyes: Yes: WNL Nose: Yes: WNL Neck: Yes: Other (#8 [place] tracheotomy tube in place, secure, functioning well , inner cannula in place, cuff is deflated, good air movement, secretions heard with respirations .) Imaging - Results Chest X-ray: Report Reviewed, Image Reviewed (rotated, tracheotomy tube in place , tip in trachea) Problem List - Problems (1) Tracheostomy in place Assessment/Plan: pt is s/p tracheostomy tube placement by Dr. Zimmer (Thoracic surgery) 07-15-2016 presently pt is breathing spontaneously off ventilator tracheotomy tube is in place, secure, and functioning well Recommend: continue tracheotomy tube care including suctioning since patient does not require vent ok to leave cuff deflated Thank you for consultation, Thien Fajardo MD FACS Code(s): Z93.0 - TRACHEOSTOMY STATUS
[2016-10-17 18:02] VITALS: PULSE 84
== END 2016-10-17 18:12 | DRG 393 ==
LOC: JER 16:15 → JERBED 20:31 → J5S 23:11
PROVIDERS: ADMIT Family Medicine; ATTEND Family Medicine
PROC: 0D20XUZ Change Feeding Device in Upper Intestinal Tract, External Approach (ICD-10-PCS; principal; 2016-10-16)
DX: K94.23 Gastrostomy malfunction (principal); J96.21 Acute and chronic respiratory failure with hypoxia; J96.22 Acute and chronic respiratory failure with hypercapnia; J44.1 Chronic obstructive pulmonary disease with (acute) exacerbation; G71.0 Muscular dystrophy; Y83.8 Other surgical procedures as the cause of abnormal reaction of the patient, or of later complication, without mention of misadventure at the time of the procedure; I48.91 Unspecified atrial fibrillation; E03.9 Hypothyroidism, unspecified; Z87.891 Personal history of nicotine dependence; Z93.1 Gastrostomy status; Z93.0 Tracheostomy status
CPT/HCPCS: 36415; 36600; 49452; 71010-TC; 80053; 82803; 84443; 85025; 93005; 93010; 94640; 99284-25; C1769

== ENCOUNTER 2016-10-18 21:58 | Emergency (ER) | payer OTHER ==
--- NOTE | 2016-10-18 22:17 | PDOC ---
History of Present Illness <Sincere Delatorre - Last Filed: 10/19/16 01:07> - General History Source: Patient, Residential Records, Old Records Exam Limitations: Clinical Condition (trach) - History of Present Illness Initial Comments: 10/18/16 23:16 The patient is a 55 year old male, with a significant past medical history of muscular dystrophy s/p trach, Afib, CHF and GERD, who presents to the emergency department sent from [facility] for evaluation after the patient was found on the floor earlier today. The patient was most recently seen in this ED on 10/14/2016 , was admitted and was discharged back to [facility] yesterday. The patient admits that he hit his head when he fell but denies any injury or pain currently in the ED. History is limited due to patients baseline clinical condition. Allergies: None reported. Past Surgical History: Brain Surgery - Subdural Hematoma Social History: Former smoker (quit in 1997). Denies alcohol or drug use. PCP: Dr. Layton <Natty Huang - Last Filed: 10/19/16 01:09> - General Stated Complaint: FALL Time Seen by Provider: 10/18/16 22:07 Past History - Past Medical History Anemia: No Asthma: No Cancer: No Cardiac Disorders: Yes (CHF, A-Fib) CVA: No COPD: No (trach on ventimask 8L) CHF: Yes Dementia: No Diabetes: No GI Disorders: Yes (gerd) Disorders: No HTN: No Hypercholesterolemia: No Liver Disease: No Seizures: No Thyroid Disease: No - Surgical History Abdominal Surgery: No Appendectomy: No Cardiac Surgery: No Cholecystectomy: No Lung Surgery: No Neurologic Surgery: Yes (brain surgery: subdural hematoma) Orthopedic Surgery: No - Immunization History Immunization Up to Date: Yes - Psycho/Social/Smoking Cessation Hx Anxiety: No Suicidal Ideation: No Smoking Status: No Smoking History: Unknown if ever smoked Have you smoked in the past 12 months: No Number of Cigarettes Smoked Daily: 0 If you are a former smoker, when did you quit?: 1997 Cigars Per Day: 0 Hx Alcohol Use: No Drug/Substance Use Hx: No Substance Use Type: None Hx Substance Use Treatment: No <Sincere Delatorre - Last Filed: 10/19/16 01:07> <Natty Huang - Last Filed: 10/19/16 01:09> - Past Medical History Allergies/Adverse Reactions: Allergies Allergy/AdvReac Type Severity Reaction Status Date / Time No Known Allergies Allergy Verified 10/18/16 22:40 Home Medications: Ambulatory Orders Aa/Hydrolyzed Collagen, Whey [Lps 15-30 Liquid] 960 ml PO DAILY 10/14/16 Aspirin [ASA -] 81 mg GT DAILY 10/14/16 Budesonide [Pulmicort 0.25 mg Nebulizer -] 1 neb PO BID 10/14/16 Enoxaparin [Lovenox -] 40 mg SQ DAILY 10/14/16 Thyroid [[place] Thyroid] 60 mg PO DAILY 10/14/16 Acetaminophen [Tylenol .Regular Strength -] 650 mg PO Q6H PRN #0 tablet Albuterol 2.5/Ipratropium 0.5 [Duoneb -] 1 amp NEB QIDR amp 10/17/16 Prednisone 10 mg GT DAILY 10/18/16 Review of Systems - Review of Systems Able to Perform ROS?: Yes Constitutional: No: Chills, Fever Cardiac (ROS): No: Chest Pain, Syncope ABD/GI: No: Vomiting Neurological: No: Headache <Sincere Delatorre - Last Filed: 10/19/16 01:07> *Physical Exam - Physical Exam Comments: 10/18/16 23:00 General: Patient is alert, following commands, in no acute distress. Head: Atraumatic and nontender. HEENT: Pupils are equal round and reactive to light, extraocular movements are intact. The tympanic membranes are clear, no hemotympanum. No facial deformity/ tenderness, no septal hematoma. The oropharynx is clear. Neck: The trachea is midline, there is no stridor. There is no midline cervical spine tenderness, full range of motion of neck. Chest: Nontender, no ecchymosis or abrasions. Heart: S1-S2, regular rate and rhythm. No murmurs. Lungs: Clear to auscultation bilaterally. Symmetric chest rise. Abdomen: Soft/nontender/nondistended. Bowel sounds are normal. There is no abdominal or flank ecchymosis. Back/Pelvis: There is no midline spine tenderness or step-off. Pelvis is stable and nontender. Extremities: Muscular atrophy at baseline. Ranging all 4 extremities.There is no extremity deformity or joint swelling. No focal bony tenderness throughout. 2 + distal pulses throughout. Neuro: Alert and oriented x3. Cranial nerves II through XII are intact. 5 out of 5 motor strength x4 extremities. [id number] is intact. No pronator drift. Gait is deferred. Skin: Scattered superficial bruising from prior phlebotomy. No abrasions/ hematomas/lacerations. Psych: Affect is appropriate. <Natty Huang - Last Filed: 10/19/16 01:09> Medical Decision Making - Medical Decision Making 10/18/16 22:41 A portion of this note was documented by scribe services under my direction. I have reviewed the details of the note, within reason, and agree with the documentation with the following case summary and management plan written by me. 55-year-old male with extensive past medical history including muscular dystrophy now status post trach, prolonged hospitalization for 2 months [facility] now sent to ER for evaluation after he was found on the floor. Patient admits that he fell, states he struck his head but denies any other injury or pain whatsoever. Has no acute complaints. Patient is on aspirin and prophylactic Lovenox, no other blood thinners. Trauma exam is unremarkable without evidence of head injury, he is neurologically intact. Will check CT head and CT C-spine, no indication for other workup at this time. 10/19/16 01:[address] acute injury on CT head or CT C-spine, patient remains clinically at baseline , required trach suctioning. Will arrange for transportation back to [facility]. <Sincere Delatorre - Last Filed: 10/19/16 01:07> - Medical Decision Making 10/19/16 01:[address] reading: No obvious intracranial hemorrhage. Awaiting official report. EXAM: HEAD CT WITHOUT CONTRAST Reviewed By: Dr. Madi Vicente IMPRESSION: No hemorrhage or fracture. EXAM: CERVICAL SPINE CT W/O CONTR Reviewed By: Dr. Madi Vicente IMPRESSION: No fracture. <Natty Huang - Last Filed: 10/19/16 01:09> *DC/Admit/Observation/Transfer <Sincere Delatorre - Last Filed: 10/19/16 01:07> - Attestations Scribe Attestion: 10/18/16 22:46 Documentation prepared by Natty Huang, acting as medical lab tech instructor for Sincere Delatorre MD. <Natty Huang - Last Filed: 10/19/16 01:09> Diagnosis at time of Disposition: Muscular dystrophy Fall from bed Qualifiers: Encounter type: initial encounter Qualified Code(s): W06.XXXA - Fall from bed, initial encounter - Discharge Dispostion Disposition: HOME Condition at time of disposition: Stable - Patient Instructions Printed Discharge Instructions: DI for Closed Head Injury Additional Instructions: A CAT scan of the head and cervical spine showed no acute injuries. Continue your medications as previously prescribed by your physician. You should follow up with your primary doctor as soon as possible regarding today's emergency department visit. Return to the emergency department for any new or concerning symptoms, particularly vomiting, confusion, fevers or chills, new neurological deficits.
[2016-10-18 22:50] VITALS: TEMP 98.4; BMI 23.5
[2016-10-19 01:51] VITALS: PULSE 106
[2016-10-19 02:54] VITALS: BP 117/66
== END 2016-10-19 02:54 | disposition home or self-care (01) ==
LOC: JER 21:58
DX: S09.8XXA Other specified injuries of head, initial encounter (principal); I48.91 Unspecified atrial fibrillation; Z79.01 Long term (current) use of anticoagulants; I50.9 Heart failure, unspecified; K21.9 Gastro-esophageal reflux disease without esophagitis; G35 Multiple sclerosis; Z93.0 Tracheostomy status; Z99.81 Dependence on supplemental oxygen; W06.XXXA Fall from bed, initial encounter; Y93.89 Activity, other specified; Y92.122 Bedroom in nursing home as the place of occurrence of the external cause
CPT/HCPCS: 70450-TC; 72125-TC; 99282-25

== ENCOUNTER 2016-10-28 21:07 | Inpatient (IN) | payer OTHER ==
--- NOTE | 2016-10-28 21:33 | PDOC ---
History of Present Illness - History of Present Illness Initial Comments: 10/28/16 23:22 Patient is a 55 year old male from [facility] with significant medical hx of COPD , AFib, muscular dystrophy, CHF, asthma, hypothyroidism, tracheostomy, acute and chronic respiratory failure with hypoxia, GERD, and recent bacterial pneumonia who has been sent to the ED for decreased O2Sat and fever. Patient was found to have O2Sat at 87% and a temperature of 100.1 today. Patient was recently diagnosed with pneumonia (see past chest x-ray below) and is currently on Levaquin 500mg via G Tube daily x 7 days. Chest X-Ray 10/20/16 Impression: Mild cardiomegaly. Compared to 09/22/16 persistent left basilar infiltrate and new right lower lobe pneumonia. Follow up is advised Radiologist: Dr. Manuel Foster MD <Daina Cantu - Last Filed: 10/28/16 23:41> <Марина Lockhart - Last Filed: 10/29/16 02:40> - General Chief Complaint: Cold Symptoms Stated Complaint: FEVER Time Seen by Provider: 10/28/16 21:31 Past History <Daina Cantu - Last Filed: 10/28/16 23:41> - Past Medical History Anemia: No Asthma: No Cancer: No Cardiac Disorders: Yes (CHF, A-Fib) CVA: No COPD: No (trach on ventimask 8L) CHF: Yes Dementia: No Diabetes: No GI Disorders: Yes (gerd) Disorders: No HTN: No Hypercholesterolemia: No Liver Disease: No Seizures: No Thyroid Disease: No - Surgical History Abdominal Surgery: No Appendectomy: No Cardiac Surgery: No Cholecystectomy: No Lung Surgery: No Neurologic Surgery: Yes (brain surgery: subdural hematoma) Orthopedic Surgery: No - Immunization History Immunization Up to Date: Yes - Psycho/Social/Smoking Cessation Hx Anxiety: No Suicidal Ideation: No Smoking Status: No Smoking History: Unknown if ever smoked Have you smoked in the past 12 months: No Number of Cigarettes Smoked Daily: 0 If you are a former smoker, when did you quit?: 1998 Cigars Per Day: 0 Hx Alcohol Use: No Drug/Substance Use Hx: No Substance Use Type: None Hx Substance Use Treatment: No <Марина Lockhart - Last Filed: 10/29/16 02:40> - Past Medical History Allergies/Adverse Reactions: Allergies Allergy/AdvReac Type Severity Reaction Status Date / Time No Known Allergies Allergy Verified 10/18/16 22:40 Home Medications: Ambulatory Orders Aspirin [ASA -] 81 mg GT DAILY 10/14/16 Budesonide [Pulmicort 0.25 mg Nebulizer -] 1 neb PO BID 10/14/16 Enoxaparin [Lovenox -] 40 mg SQ DAILY 10/14/16 Thyroid [[place] Thyroid] 60 mg PO DAILY 10/14/16 Acetaminophen [Tylenol .Regular Strength -] 650 mg PO Q6H PRN #0 tablet Albuterol 2.5/Ipratropium 0.5 [Duoneb -] 1 amp NEB QIDR amp 10/17/16 Prednisone 10 mg GT DAILY 10/18/16 Levofloxacin [Levaquin -] 500 mg GT DAILY 10/28/16 Review of Systems - Review of Systems Comments:: 10/28/16 23:41 Unable to perform ROS. <Daina Cantu - Last Filed: 10/28/16 23:41> *Physical Exam - Vital Signs Last Vital Signs Temp Pulse Resp BP Pulse Ox 99.7 F H 96 H 20 90/65 98 10/28/16 22:14 10/28/16 22:55 10/28/16 22:55 10/28/16 22:55 10/28/16 22:55 - Physical Exam Comments: 10/28/16 23:42 GENERAL: Well developed, well nourished. Awake and alert. No acute distress. HEENT: Normocephalic, atraumatic. PERRLA, EOMI. No conjunctival pallor. Sclera are non- icteric. Moist mucous membranes. Oropharynx is clear. NECK: Supple. Full ROM. No JVD. Carotid pulses 2+ and symmetric, without bruits. No thyromegaly. No lymphadenopathy. CARDIOVASCULAR: Regular rate and rhythm. No murmurs, rubs, or gallops. Distal pulses are 2+ and symmetric. PULMONARY: Tracheostomy. Copious amount of tracheal secretions. No evidence of respiratory distress. Lungs clear to auscultation bilaterally. No wheezing, rales or rhonchi. ABDOMINAL: Soft. Non-tender. Non-distended. No rebound or guarding. No organomegaly. Normoactive bowel sounds. MUSCULOSKELETAL: Normal range of motion at all joints. No bony deformities or tenderness. No CVA tenderness. EXTREMITIES: No cyanosis. No clubbing. No edema. No calf tenderness. SKIN: Warm and dry. Normal capillary refill. No rashes. No jaundice. NEUROLOGICAL: Alert, awake. MS. Generalized muscle weakness. Cranial nerves 2-12 intact. PSYCHIATRIC: Cooperative. Good eye contact. Appropriate mood and affect. <Daina Cantu - Last Filed: 10/28/16 23:41> - Vital Signs Last Vital Signs Temp Pulse Resp BP Pulse Ox 99.7 F H 103 H 19 92/76 98 10/28/16 21:13 10/28/16 21:13 10/28/16 21:13 10/28/16 21:13 10/28/16 21:13 <Марина Lockhart - Last Filed: 10/29/16 02:40> ED Treatment Course - LABORATORY CBC & Chemistry Diagram: 10/28/16 21:50 10/28/16 21:50 - ADDITIONAL ORDERS Additional order review: Laboratory Results 10/28/16 10/28/16 10/28/16 22:10 22:00 21:50 INR PTT (Actin FS) VBG pH 7.38 POC VBG pCO2 62.1 H* D POC VBG pO2 40.8 Mixed VBG HCO3 36.1 H Sodium Potassium Chloride Carbon Dioxide Anion Gap BUN Creatinine Creat Clearance w eGFR Random Glucose Lactic Acid Calcium Total Bilirubin AST ALT Alkaline Phosphatase Creatine Kinase Troponin I Total Protein Albumin Urine Color Yellow Urine Appearance Clear Urine pH 6.0 Ur Specific [place] 1.013 Urine Protein Negative Urine Glucose (UA) Negative Urine Ketones Negative Urine Blood Negative Urine Nitrite Negative Urine Bilirubin Negative Urine Urobilinogen Negative Ur Leukocyte Esterase Negative Blood Type B POSITIVE Antibody Screen Negative 10/28/16 10/28/16 10/28/16 21:50 21:50 21:50 INR 1.12 PTT (Actin FS) 29.3 VBG pH POC VBG pCO2 POC VBG pO2 Mixed VBG HCO3 Sodium 138 Potassium 4.1 Chloride 96 L Carbon Dioxide 36 H Anion Gap 6 L BUN 15 Creatinine 0.3 L D Creat Clearance w eGFR > 60 Random Glucose 94 D Lactic Acid 0.690 Calcium 9.1 Total Bilirubin 0.3 D AST 29 D ALT 48 Alkaline Phosphatase 87 Creatine Kinase 32 L Troponin I 0.02 Total Protein 6.5 Albumin 2.9 L Urine Color Urine Appearance Urine pH Ur Specific [place] Urine Protein Urine Glucose (UA) Urine Ketones Urine Blood Urine Nitrite Urine Bilirubin Urine Urobilinogen Ur Leukocyte Esterase Blood Type Antibody Screen 10/28/16 21:50 RBC 4.54 MCV 82.0 MCHC 32.3 RDW 15.9 MPV 8.6 Neutrophils % 85.5 H Lymphocytes % 9.3 D Monocytes % 4.8 Eosinophils % 0.1 D Basophils % 0.3 - RADIOLOGY Radiograph Interpretation: 10/28/16 23:42 Chest X-Ray Impression: Limited study with right lower lobe consolidation and pleural effusion. Reported By: Lalito Cavazos MD <Daina Cantu - Last Filed: 10/28/16 23:41> - LABORATORY CBC & Chemistry Diagram: 10/28/16 21:50 10/28/16 21:50 <Марина Lockhart - Last Filed: 10/29/16 02:40> Medical Decision Making - Medical Decision Making 10/29/16 01:41 55 yo male with muscular dystrophy who has chronic tracheostomy was BIBA from assisted for fever -pt had copious tracheal secretions that were suctioned cxr pleural effusion on rt and consolidation -pt given antibiotics -pt 's pulse ox was above 95% pulse ox on oxygen -influenza negative ua negative -pt given antibiotics/case discussed w Dr Layton who admitted for pulm tx, antibiotics 10/29/16 02:39 <Марина Lockhart - Last Filed: 10/29/16 02:40> *DC/Admit/Observation/Transfer - Attestations Scribe Attestion: 10/28/16 23:45 Documentation prepared by Daina Cantu, acting as center medical director for Марина Lockhart MD. <Daina Cantu - Last Filed: 10/28/16 23:41> - Discharge Dispostion Admit: Yes <Марина Lockhart - Last Filed: 10/29/16 02:40> Diagnosis at time of Disposition: Muscular dystrophy, Pleural effusion Fever Qualifiers: Fever type: other Qualified Code(s): R50.81 - Fever presenting with conditions classified elsewhere - Discharge Dispostion Condition at time of disposition: Stable - Referrals
[2016-10-28] MEDS ORDERED: SODIUM CHLORIDE 0.9% 1000 ML INFUS.BAG IV PRN (21:34)
[2016-10-28 22:12] LABS: BASOPHIL 0.3 % (0-2.0); EOSINOPHIL 0.1 % (0-4.5); MCH 26.5 pg (25.7-33.7); MCHC 32.3 g/dl (32.0-35.9); MEAN PLT VOLUME 8.6 fl (7.5-11.1); NEUTROPHILS 85.5 % (42.8-82.8); PLATELET COUNT 219 K/MM3 (134-434); RDW 15.9 % (11.9-15.9)
[2016-10-28 22:17] LABS: VENOUS BLOOD GAS HCO3 36.1 meq/L (19-25); VENOUS PH 7.38 (7.32-7.42)
[2016-10-28 22:25] LABS: INR 1.12 (0.82-1.09); PROTHROMBIN TIME (PATIENT) 12.4 SEC (9.98-11.88)
[2016-10-28 22:25] LABS: URINE APPEARANCE CLEAR; URINE BILIRUBIN NEGATIVE (NEGATIVE); URINE BLOOD NEGATIVE (NEGATIVE); URINE COLOR YELLOW; URINE GLUCOSE (UA) NEGATIVE (NEGATIVE); URINE KETONE NEGATIVE (NEGATIVE); URINE LEUK ESTERASE NEGATIVE (NEGATIVE); URINE NITRITE NEGATIVE (NEGATIVE); URINE PROTEIN NEGATIVE (NEGATIVE); URINE UROBILINOGEN NEGATIVE E.U./dl (0.2-1.0)
[2016-10-28 22:27] LABS: ACTIVATED PTT 29.3 SECONDS (26.9-34.4)
[2016-10-28 22:35] LABS: ALBUMIN 2.9 g/dl (3.4-5.0); ANION GAP 6 (8-16); BILIRUBIN,TOTAL 0.3 mg/dL (0.2-1.0); CALCIUM 9.1 mg/dL (8.5-10.1); CO2 36 mmol/L (21-32); CREATININE 0.3 mg/dL (0.7-1.3); GLUCOSE,RANDOM 94 mg/dL (74-106); SGOT/AST 29 U/L (15-37); SGPT/ALT 48 U/L (12-78); TOT PROT 6.5 g/dl (6.4-8.2)
[2016-10-28 22:38] LABS: ALK PHOS 87 U/L (45-117); TROPONIN I 0.02 ng/ml (0.00-0.05)
[2016-10-28] MEDS ORDERED: PIPERACILLIN/TAZOB 3.375 GM 3.375 GM in DEXTROSE 5%-WATER - 50 ML IVPB ONE (23:43)
[2016-10-28] MEDS ORDERED: VANCOMYCIN 1,000 MG in DEXTROSE 5%-WATER - 250 ML IVPB ONE (23:44)
[2016-10-28] MEDS ORDERED: VANCOMYCIN 1 GRAM (PRE-DOCKED) 250 ML IVPB ONE (23:52)
[2016-10-28] MEDS ORDERED: PIPERACILLIN/TAZOB 3.375 GM 50 ML IVPB ONE (23:53)
[2016-10-29] MEDS ORDERED: ACETAMINOPHEN 325 MG TABLET (FP) PO PRN (00:56)
[2016-10-29] MEDS ORDERED: LACTATED RINGERS SOLUTION 1,000 ML IV SCH (01:00)
[2016-10-29 04:08] VITALS: BMI 25.4
[2016-10-29] MEDS: ALBUTEROL SO4 2.5/IPRATROPIUM 0.5 INH SOL 3 ML VIAL.NEB. NEB SCH ×4 (07:30→23:59)
--- NOTE | 2016-10-29 08:11 | HP ---
Admitting History and Physical - Admission History of Present Illness: 55 year old male from [facility] with significant medical hx of COPD, AFib, muscular dystrophy, CHF, asthma, hypothyroidism, tracheostomy, acute and chronic respiratory failure with hypoxia, GERD, and recent bacterial pneumonia who has been sent to the ED for decreased O2Sat and fever. Patient was found to have O2Sat at 87% and a temperature of 100.1 today. Patient was recently diagnosed with pneumonia (see past chest x-ray below) and is currently on Levaquin 500mg via G Tube daily x 7 days. 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: Other (Muscular dystrophy) Cardiovascular: Yes: AFIB, CHF, HTN Musculoskeletal: Yes: Other (muscular dystrophy) Endocrine: Yes: Hypothyroidism - Smoking History Smoking history: Former smoker Have you smoked in the past 12 months: No Aproximately how many cigarettes per day: 0 If you are a former smoker, when did you quit?: 1997 - Alcohol/Substance Use Hx Alcohol Use: No History of Substance Use: reports: None - Social History ADL: Support Services History of Recent Travel: No Home Medications - Allergies Allergies/Adverse Reactions: Allergies Allergy/AdvReac Type Severity Reaction Status Date / Time No Known Allergies Allergy Verified 10/18/16 22:40 - Home Medications Home Medications: Ambulatory Orders Aspirin [ASA -] 81 mg GT DAILY 10/14/16 Budesonide [Pulmicort 0.25 mg Nebulizer -] 1 neb PO BID 10/14/16 Enoxaparin [Lovenox -] 40 mg SQ DAILY 10/14/16 Thyroid [[place] Thyroid] 60 mg PO DAILY 10/14/16 Acetaminophen [Tylenol .Regular Strength -] 650 mg PO Q6H PRN #0 tablet Albuterol 2.5/Ipratropium 0.5 [Duoneb -] 1 amp NEB QIDR amp 10/17/16 Prednisone 10 mg GT DAILY 10/18/16 Levofloxacin [Levaquin -] 500 mg GT DAILY 10/28/16 Review of Systems - Review of Systems Respiratory: reports: Cough, Other (LOW O2 SAT) Gastrointestinal: reports: No Symptoms Physical Examination Vital Signs: Vital Signs Temperature 98.7 F 10/29/16 03:00 Pulse Rate 91 H 10/29/16 03:00 Respiratory Rate 16 10/29/16 03:00 Blood Pressure 101/64 10/29/16 03:00 O2 Sat by Pulse Oximetry (%) 88 L 10/29/16 03:00 Cardiovascular: Yes: Regular Rate and Rhythm Respiratory: Yes: Diminished, Rhonchi, Other (TRACH) Gastrointestinal: Yes: Normal Bowel Sounds, Soft, Other (PEG) Imaging - Results Chest X-ray: Report Reviewed Problem List - Problems (1) Fever Assessment/Plan: DUE TO PNEUMONIA IV ABX ID AND PULM CONSULT Code(s): R50.9 - FEVER, UNSPECIFIED Qualifiers: Fever type: other Qualified Code(s): R50.81 - Fever presenting with conditions classified elsewhere (2) Respiratory failure Assessment/Plan: TRACH MONITOR Code(s): J96.90 - RESPIRATORY FAILURE, UNSP, UNSP W HYPOXIA OR HYPERCAPNIA (3) Muscular dystrophy Assessment/Plan: MONITOR Code(s): G71.0 - MUSCULAR DYSTROPHY (4) A-fib Assessment/Plan: ASA Code(s): I48.91 - UNSPECIFIED ATRIAL FIBRILLATION Qualifiers: Atrial fibrillation type: paroxysmal Qualified Code(s): I48.0 - Paroxysmal atrial fibrillation
[2016-10-29] MEDS ORDERED: PT OWN MED DRAWER 7, Y5N ONE (09:55)
[2016-10-29] MEDS ORDERED: CEFTRIAXONE 50 ML IVPB SCH (10:00)
[2016-10-29] MEDS: BUDESONIDE 0.25 MG/2ML INH SUSP VIAL NEB SCH ×2 (10:00→22:20)
[2016-10-29] MEDS ORDERED: LEVOFLOXACIN 500 MG TABLET (FP) GT SCH (10:00)
[2016-10-29] MEDS: ASPIRIN 81 MG CHEWABLE TABLETS GT SCH (10:04)
[2016-10-29] MEDS: ENOXAPARIN NA (PORCINE) 40 MG/0.4 ML DISP.SYRIN SQ SCH (10:04)
[2016-10-29] MEDS: predniSONE 10 MG TABLET (UD) GT SCH (10:04)
[2016-10-29] MEDS: THYROID 60 MG TABLET PO SCH (11:25)
--- NOTE | 2016-10-29 11:34 | PN ---
Progress Note (short form) - Note Progress Note: ID Consult dictated NH acquired RLL pneumonia Possible sepsis secondary to pneumonia COPD exacerbation S/P respiratory failure/ trach Muscular dystrophy Obtain suctioned sputum c/s Empiric zosyn
--- NOTE | 2016-10-29 13:50 | EKG ---
Test Reason : Blood Pressure : / mmHG Vent. Rate : 099 BPM Atrial Rate : 099 BPM P-R Int : 174 ms QRS Dur : 116 ms QT Int : 364 ms P-R-T Axes : 034 -29 018 degrees QTc Int : 467 ms NORMAL SINUS RHYTHM LEFT VENTRICULAR HYPERTROPHY WITH QRS WIDENING ABNORMAL ECG WHEN COMPARED WITH ECG OF 15-OCT-2016 09:34, NO SIGNIFICANT CHANGE WAS FOUND Confirmed by BROOKE CROSS, YAYA ([id number]) on 10/29/2016 1:49:55 PM Referred By: Confirmed By:YAYA COX MD
[2016-10-29] MEDS: PIPERACILLIN/TAZOB 3.375 GM 50 ML IVPB SCH ×2 (13:51→22:09)
[2016-10-29 14:41] LABS: ARTERIAL BLD GAS O2 SATURATION 92.2 % (90-98.9); ARTERIAL BLOOD GAS BASE EXCESS 9.2 meq/l (-2-2); ARTERIAL BLOOD GAS pH 7.41 (7.35-7.45)
[2016-10-29 14:42] LABS: ALLENS TEST POSITIVE
[2016-10-29 14:43] LABS: ART PUNCT SITE RIGHT RADIAL; LPM/O2% 100%; PT. ON O2? YES; TYPE OF O2 TRACH COLLAR
[2016-10-29 14:44] LABS: ARTERIAL BLOOD GAS HCO3 35.1 meq/L (22-26); ARTERIAL BLOOD GAS PO2 65.4 mmHg (80-100)
--- NOTE | 2016-10-29 16:37 | CONS ---
DATE OF CONSULTATION: DATE OF DICTATION : 10/29/2016 INFECTIOUS DISEASE CONSULTATION HISTORY OF PRESENT ILLNESS: The patient is a 55-year-old male evaluated for pneumonia, history was obtained from the chart. He is a 55-year-old male with a history of muscular dystrophy, history of respiratory failure status post tracheostomy and feeding gastrostomy, admitted from [facility] with fever and hypoxemia. He was noted to have temperature of 100.1 at the [facility] and 02 saturation of 87%. He was empirically treated with Levaquin for presumed pneumonia. He was transferred to the emergency room where chest x-ray shows a new right lower lobe consolidation. He was recently hospitalized at [facility] this month with a COPD exacerbation and malfunctioning feeding gastrostomy tube. No reports of high-grade fever, shaking chills, purulent sputum production, grossly purulent urine, vomiting or diarrhea. PAST MEDICAL HISTORY: Positive for multiple muscular dystrophy, history of respiratory failure, COPD, atrial fibrillation, congestive heart failure, hypothyroidism, gastroesophageal reflux. PAST SURGICAL HISTORY: Status post tracheostomy and feeding gastrostomy. ALLERGIES: No known allergies. MEDICATION: Include vancomycin, Zosyn, Pulmicort, prednisone, Tylenol, Lovenox, aspirin, thyroid replacement. SOCIAL HISTORY: He is a [facility] resident, former smoker. SYSTEMIC REVIEW: Neurologic: Positive for muscular dystrophy. No loss of consciousness, seizure activity, or focal weakness. Cardiac: Positive for atrial fibrillation. Respiratory: As per HPI. Gastrointestinal: Status post feeding gastrostomy. Genitourinary: Negative for urinary tract infection. LABORATORY DATA: White count 12.0, hematocrit 37.2, platelet count 219, BUN 15, creatinine 0.3. Urine: leukocyte esterase negative. Influenza screen negative. Blood cultures and sputum culture pending. PHYSICAL EXAMINATION: General: The patient is awake, he is lethargic, in no acute respiratory distress, possible congestion. Vital signs: Temperature 98.7, T-max 99.7, blood pressure 101/64, pulse 91 regular, respirations 20 per minute. HEENT: Sclerae anicteric. Cardiovascular: Heart sounds irregular, S1, S2. Respiratory: Lungs bilateral rhonchi. Abdomen: Soft. No tenderness elicited. No mass, rebound, or rigidity. Feeding gastrostomy tube is in place. Extremities: Negative for edema. IMPRESSION: 1. senior care acquired right lower lobe pneumonia. 2. Possible sepsis secondary to pneumonia. 3. Chronic obstructive pulmonary disease exacerbation. 4. Status post respiratory failure/tracheostomy. 5. History of muscular dystrophy. Obtained suctioned sputum FEEDLOT MANAGER, serum legionella and pneumococcal antigens, empiric antibiotic coverage for healthcare associated pneumonia with Zosyn. Aspiration precautions. Thank you for the kind referral. OCTAVIANO OLMEDO M.D. FANNY/[id number]
--- NOTE | 2016-10-29 17:24 | CON.PULM ---
Consult Consult Specialty:: PULMONARY Referred by:: JG Reason for Consultation:: RESP FAILURE - History of Present Illness Chief Complaint: HYPOXEMIA/FEVER History of Present Illness: Patient is a 55 year old male from [facility] with significant medical hx of COPD , AFib, muscular dystrophy, CHF, asthma, hypothyroidism, tracheostomy, acute and chronic respiratory failure with hypoxia, GERD, and recent bacterial pneumonia who has been sent to the ED for decreased O2Sat and fever. Patient was found to have O2Sat at 87% and a temperature of 100.1 today. Patient was recently diagnosed with pneumonia and is currently on Levaquin 500mg via G Tube daily x 7 days. 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 ROS: Not possible since pt is intubated - Alcohol/Substance Use Hx Alcohol Use: No History of Substance Use: reports: None - Smoking History Smoking history: Former smoker Have you smoked in the past 12 months: No Aproximately how many cigarettes per day: 0 If you are a former smoker, when did you quit?: 1997 - Social History Usual Living Arrangement: Other (he lives in an appartment, she takes care of him. He has Homehealth aid from morning to 1 pm. He is alone from 1-8pm. He doesnt ambulate much as baseline and has garbled speech.) ADL: Support Services History of Recent Travel: No Home Medications - Allergies Allergies/Adverse Reactions: Allergies Allergy/AdvReac Type Severity Reaction Status Date / Time No Known Allergies Allergy Verified 10/18/16 22:40 - Home Medications Home Medications: Ambulatory Orders Aspirin [ASA -] 81 mg GT DAILY 10/14/16 Budesonide [Pulmicort 0.25 mg Nebulizer -] 1 neb PO BID 10/14/16 Enoxaparin [Lovenox -] 40 mg SQ DAILY 10/14/16 Thyroid [[place] Thyroid] 60 mg PO DAILY 10/14/16 Acetaminophen [Tylenol .Regular Strength -] 650 mg PO Q6H PRN #0 tablet Albuterol 2.5/Ipratropium 0.5 [Duoneb -] 1 amp NEB QIDR amp 10/17/16 Prednisone 10 mg GT DAILY 10/18/16 Levofloxacin [Levaquin -] 500 mg GT DAILY 10/28/16 Family Disease History - Family Disease History Family History: Unable to Obtain Review of Systems Unable to obtain ROS, reason: UNABLE Physical Exam Vital Sings: Vital Signs Temperature 99 F 10/29/16 13:58 Pulse Rate 102 H 10/29/16 14:24 Respiratory Rate 21 10/29/16 13:58 Blood Pressure 103/60 10/29/16 13:58 O2 Sat by Pulse Oximetry (%) 92 L 10/29/16 14:24 Constitutional: Yes: Pallor, Other (LETHARGIC) Eyes: Yes: Conjunctiva Clear HENT: Yes: Atraumatic Neck: Yes: Other (TRACH) Cardiovascular: Yes: S1, S2 Respiratory: Yes: Diminished, Rhonchi (DIFFUSE) Gastrointestinal: Yes: Soft, Other (PEG) Musculoskeletal: Yes: Muscle Weakness Edema: LLE: 1+, RLE: 1+ Neurological: Yes: Lethargy Labs: ABG Results ABG pH 7.41 (7.35-7.45) 10/29/16 14:35 ABG pCO2 at Pt Temp 56.8 mmHg (35-45) H 10/29/16 14:35 ABG pO2 at Pt Temp 65.4 mmHg (80-100) L 10/29/16 14:35 ABG HCO3 35.1 meq/L (22-26) H 10/29/16 14:35 ABG O2 Sat (Measured) 92.2 % (90-98.9) 10/29/16 14:35 ABG O2 Content 14.0 % vol (15-22) L 10/29/16 14:35 ABG Base Excess 9.2 meq/l (-2-2) H 10/29/16 14:35 REST REVIEWED Imaging - Results Chest X-ray: Image Reviewed Problem List - Problems (1) Fever Code(s): R50.9 - FEVER, UNSPECIFIED Qualifiers: Fever type: other Qualified Code(s): R50.81 - Fever presenting with conditions classified elsewhere (2) Muscular dystrophy Code(s): G71.0 - MUSCULAR DYSTROPHY (3) Pleural effusion Code(s): J90 - PLEURAL EFFUSION, NOT ELSEWHERE CLASSIFIED (4) A-fib Code(s): I48.91 - UNSPECIFIED ATRIAL FIBRILLATION Qualifiers: Atrial fibrillation type: paroxysmal Qualified Code(s): I48.0 - Paroxysmal atrial fibrillation (5) Acute on chronic respiratory failure with hypoxia and hypercapnia Code(s): J96.21 - ACUTE AND CHRONIC RESPIRATORY FAILURE WITH HYPOXIA J96.22 - ACUTE AND CHRONIC RESPIRATORY FAILURE WITH HYPERCAPNIA (6) Alteration consciousness Code(s): R40.4 - TRANSIENT ALTERATION OF AWARENESS Assessment/Plan CHECK VANCE-CULTURES FREQUENT SUCTIONING MONITOR ABG MAY NEED MVV F/U CXR BRONCHODILATORS/ANTIBIOTICS WILL FOLLOW Chris KABA MD
--- NOTE | 2016-10-29 17:28 | CON.PULM ---
Consult Consult Specialty:: PULMONARY Referred by:: JG Reason for Consultation:: PNEUMONIA/FEVER - History of Present Illness Chief Complaint: PNEUMONIA/FEVER History of Present Illness: Patient is a 55 year old male from [facility] with significant medical hx of COPD , AFib, muscular dystrophy, CHF, asthma, hypothyroidism, tracheostomy, acute and chronic respiratory failure with hypoxia, GERD, and recent bacterial pneumonia who has been sent to the ED for decreased O2Sat and fever. Patient was found to have O2Sat at 87% and a temperature of 100.1 today. Patient was recently diagnosed with pneumonia and is currently on Levaquin 500mg via G Tube daily x 7 days. 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 ROS: Not possible since pt is intubated - Alcohol/Substance Use Hx Alcohol Use: No History of Substance Use: reports: None - Smoking History Smoking history: Former smoker Have you smoked in the past 12 months: No Aproximately how many cigarettes per day: 0 If you are a former smoker, when did you quit?: 1997 - Social History Usual Living Arrangement: Other (he lives in an appartment, she takes care of him. He has Homehealth aid from morning to 1 pm. He is alone from 1-8pm. He doesnt ambulate much as baseline and has garbled speech.) ADL: Support Services History of Recent Travel: No Home Medications - Allergies Allergies/Adverse Reactions: Allergies Allergy/AdvReac Type Severity Reaction Status Date / Time No Known Allergies Allergy Verified 10/18/16 22:40 - Home Medications Home Medications: Ambulatory Orders Aspirin [ASA -] 81 mg GT DAILY 10/14/16 Budesonide [Pulmicort 0.25 mg Nebulizer -] 1 neb PO BID 10/14/16 Enoxaparin [Lovenox -] 40 mg SQ DAILY 10/14/16 Thyroid [[place] Thyroid] 60 mg PO DAILY 10/14/16 Acetaminophen [Tylenol .Regular Strength -] 650 mg PO Q6H PRN #0 tablet Albuterol 2.5/Ipratropium 0.5 [Duoneb -] 1 amp NEB QIDR amp 10/17/16 Prednisone 10 mg GT DAILY 10/18/16 Levofloxacin [Levaquin -] 500 mg GT DAILY 10/28/16 Family Disease History - Family Disease History Family History: Unable to Obtain Review of Systems Unable to obtain ROS, reason: UNABLE Physical Exam Vital Sings: Vital Signs Temperature 99 F 10/29/16 13:58 Pulse Rate 102 H 10/29/16 14:24 Respiratory Rate 21 10/29/16 13:58 Blood Pressure 103/60 10/29/16 13:58 O2 Sat by Pulse Oximetry (%) 92 L 10/29/16 14:24 Constitutional: Yes: Other (LETHARGIC) Eyes: Yes: Conjunctiva Clear HENT: Yes: Atraumatic Neck: Yes: Other (TRACHEOSTOMY) Cardiovascular: Yes: S1, S2 Respiratory: Yes: Diminished, Rhonchi Gastrointestinal: Yes: Soft, Other (PEG) Musculoskeletal: Yes: Muscle Weakness Edema: LLE: 1+, RLE: 1+ Neurological: Yes: Lethargy Labs: ABG Results ABG pH 7.41 (7.35-7.45) 10/29/16 14:35 ABG pCO2 at Pt Temp 56.8 mmHg (35-45) H 10/29/16 14:35 ABG pO2 at Pt Temp 65.4 mmHg (80-100) L 10/29/16 14:35 ABG HCO3 35.1 meq/L (22-26) H 10/29/16 14:35 ABG O2 Sat (Measured) 92.2 % (90-98.9) 10/29/16 14:35 ABG O2 Content 14.0 % vol (15-22) L 10/29/16 14:35 ABG Base Excess 9.2 meq/l (-2-2) H 10/29/16 14:35 REST REVIEWED Imaging - Results Chest X-ray: Image Reviewed Problem List - Problems (1) Fever Code(s): R50.9 - FEVER, UNSPECIFIED Qualifiers: Fever type: other Qualified Code(s): R50.81 - Fever presenting with conditions classified elsewhere (2) Muscular dystrophy Code(s): G71.0 - MUSCULAR DYSTROPHY (3) Pleural effusion Code(s): J90 - PLEURAL EFFUSION, NOT ELSEWHERE CLASSIFIED (4) A-fib Code(s): I48.91 - UNSPECIFIED ATRIAL FIBRILLATION Qualifiers: Atrial fibrillation type: paroxysmal Qualified Code(s): I48.0 - Paroxysmal atrial fibrillation (5) Acute on chronic respiratory failure with hypoxia and hypercapnia Code(s): J96.21 - ACUTE AND CHRONIC RESPIRATORY FAILURE WITH HYPOXIA J96.22 - ACUTE AND CHRONIC RESPIRATORY FAILURE WITH HYPERCAPNIA (6) Alteration consciousness Code(s): R40.4 - TRANSIENT ALTERATION OF AWARENESS Assessment/Plan CHECK VANCE-CULTURES FREQUENT SUCTIONING MONITOR ABG MAY NEED MVV F/U CXR BRONCHODILATORS/ANTIBIOTICS WILL FOLLOW Chris KABA MD
[2016-10-30] MEDS: ALBUTEROL SO4 2.5/IPRATROPIUM 0.5 INH SOL 3 ML VIAL.NEB. NEB SCH ×4 (06:39→23:16)
[2016-10-30 08:10] LABS: BASOPHIL 0.1 % (0-2.0); EOSINOPHIL 0.4 % (0-4.5); MCH 26.7 pg (25.7-33.7); MCHC 32.2 g/dl (32.0-35.9); MEAN CELL VOLUME 82.7 fl (80-96); MEAN PLT VOLUME 8.2 fl (7.5-11.1); NEUTROPHILS 85.7 % (42.8-82.8); PLATELET COUNT 178 K/MM3 (134-434); RDW 16.1 % (11.9-15.9); WHITE BLOOD COUNT 8.6 K/mm3 (4.0-10.0)
[2016-10-30 08:31] LABS: ALBUMIN 2.6 g/dl (3.4-5.0); ANION GAP 3 (8-16); BILIRUBIN,TOTAL 0.3 mg/dL (0.2-1.0); CALCIUM 8.9 mg/dL (8.5-10.1); CO2 40 mmol/L (21-32); CREATININE 0.3 mg/dL (0.7-1.3); GLUCOSE,RANDOM 111 mg/dL (74-106); MAGNESIUM 2.4 mg/dL (1.8-2.4); SGOT/AST 19 U/L (15-37); SGPT/ALT 39 U/L (12-78); TOT PROT 5.8 g/dl (6.4-8.2)
[2016-10-30 08:32] LABS: ALK PHOS 81 U/L (45-117)
[2016-10-30] MEDS ORDERED: PT OWN MED DRAWER 7, Y5N ONE ×2 (10:16→17:31)
[2016-10-30] MEDS: ENOXAPARIN NA (PORCINE) 40 MG/0.4 ML DISP.SYRIN SQ SCH (10:18)
[2016-10-30] MEDS: PIPERACILLIN/TAZOB 3.375 GM 50 ML IVPB SCH ×2 (10:18→22:50)
[2016-10-30] MEDS: THYROID 60 MG TABLET PO SCH (10:19)
[2016-10-30] MEDS: predniSONE 10 MG TABLET (UD) GT SCH (10:19)
[2016-10-30] MEDS: ASPIRIN 81 MG CHEWABLE TABLETS GT SCH (10:19)
[2016-10-30] MEDS ORDERED: BUDESONIDE 0.5 MG/2 ML INH SUSP VIAL NEB ONE ×2 (10:47→21:12)
[2016-10-30] MEDS: BUDESONIDE 0.25 MG/2ML INH SUSP VIAL NEB SCH ×2 (11:00→21:45)
--- NOTE | 2016-10-30 11:44 | PN ---
Progress Note (short form) - Note Progress Note: Awake and responsive. Mildly tachypneic on 40% Trach collar. Congested cough is noted with copious yellowish/brownish secretions. CXR: Opacified right hemithorax : suspect infiltrates/effusion. Intake & Output 10/27/16 10/28/16 10/29/16 10/30/16 23:59 23:59 23:59 23:59 Intake Total 986 0 Output Total 1275 Balance -289 0 Weight 150 lb 172 lb 5 oz 170 lb 3.2 oz Last Vital Signs Temp Pulse Resp BP Pulse Ox 98.8 F 105 H 20 155/70 90 L 10/30/16 06:00 10/30/16 11:18 10/30/16 06:00 10/30/16 06:00 10/30/16 11:18 Active Medications Acetaminophen (Tylenol -) 650 mg PO Q6H PRN PRN Reason: FEVER OR PAIN Albuterol/Ipratropium (Duoneb -) 1 amp NEB QIDR [facility] Last Admin: 10/30/16 11:00 Dose: 1 amp Aspirin (Asa -) 81 mg GT DAILY [facility] Last Admin: 10/30/16 10:19 Dose: 81 mg Budesonide (Pulmicort 0.25 Mg Nebulizer -) 1 amp NEB BID [facility] Last Admin: 10/30/16 11:00 Dose: 1 amp Enoxaparin Sodium (Lovenox -) 40 mg SQ DAILY [facility] Last Admin: 10/30/16 10:18 Dose: 40 mg Piperacillin Sod/Tazobactam Sod (Zosyn 3.375gm Ivpb (Pre-Docked)) 50 mls @ 100 mls/hr IVPB BID [facility] PRN Reason: Protocol Last Admin: 10/30/16 10:18 Dose: 100 mls/hr Prednisone (Deltasone -) 10 mg GT DAILY [facility] Last Admin: 10/30/16 10:19 Dose: 10 mg Sodium Chloride (Normal Saline -) 250 ml IV Q20M PRN PRN Reason: MAP<65mm Hg OR SBP <90 Last Admin: 10/28/16 22:19 Dose: 250 ml Thyroid ([place] Thyroid -) 60 mg PO DAILY [facility] Last Admin: 10/30/16 10:19 Dose: 60 mg Constitutional: Yes: Awake and responsive Eyes: Yes: Conjunctiva Clear HENT: Yes: Atraumatic Neck: Yes: Trach intact Cardiovascular: Yes: S1, S2 Respiratory: Yes: Diminished on the right, (+) Rhonchi Gastrointestinal: Yes: Soft, PEG Musculoskeletal: Yes: Muscle Weakness Edema: LLE: 1+, RLE: 1+ Neurological: Yes: Non-focal Labs: Laboratory Results - last 24 hr 10/29/16 10/30/16 10/30/16 14:35 06:00 06:00 WBC 8.6 RBC 4.28 Hgb 11.4 L Hct 35.4 MCV 82.7 MCHC 32.2 RDW 16.1 H Plt Count 178 MPV 8.2 Neutrophils % 85.7 H Lymphocytes % 8.8 Monocytes % 5.0 Eosinophils % 0.4 D Basophils % 0.1 Puncture Site Right radial ABG pH 7.41 ABG pCO2 at Pt Temp 56.8 H ABG pO2 at Pt Temp 65.4 L ABG HCO3 35.1 H ABG O2 Sat (Measured) 92.2 ABG O2 Content 14.0 L ABG Base Excess 9.2 H Gurdeep Test Positive O2 Delivery Device Trach collar Oxygen Flow Rate 100% PEEP 0.0 Sodium 142 Potassium 4.1 Chloride 99 Carbon Dioxide 40 H Anion Gap 3 L BUN 10 D Creatinine 0.3 L Creat Clearance w eGFR > 60 POC Glucometer Random Glucose 111 H Calcium 8.9 Magnesium 2.4 Total Bilirubin 0.3 AST 19 D ALT 39 Alkaline Phosphatase 81 Total Protein 5.8 L Albumin 2.6 L 10/30/16 06:56 WBC RBC Hgb Hct MCV MCHC RDW Plt Count MPV Neutrophils % Lymphocytes % Monocytes % Eosinophils % Basophils % Puncture Site ABG pH ABG pCO2 at Pt Temp ABG pO2 at Pt Temp ABG HCO3 ABG O2 Sat (Measured) ABG O2 Content ABG Base Excess Gurdeep Test O2 Delivery Device Oxygen Flow Rate PEEP Sodium Potassium Chloride Carbon Dioxide Anion Gap BUN Creatinine Creat Clearance w eGFR POC Glucometer 156 Random Glucose Calcium Magnesium Total Bilirubin AST ALT Alkaline Phosphatase Total Protein Albumin Problem List - Problems (1) Fever Code(s): R50.9 - FEVER, UNSPECIFIED Qualifiers: Fever type: other Qualified Code(s): R50.81 - Fever presenting with conditions classified elsewhere (2) Muscular dystrophy Code(s): G71.0 - MUSCULAR DYSTROPHY (3) Pleural effusion Code(s): J90 - PLEURAL EFFUSION, NOT ELSEWHERE CLASSIFIED (4) A-fib Code(s): I48.91 - UNSPECIFIED ATRIAL FIBRILLATION Qualifiers: Atrial fibrillation type: paroxysmal Qualified Code(s): I48.0 - Paroxysmal atrial fibrillation (5) Acute on chronic respiratory failure with hypoxia and hypercapnia Code(s): J96.21 - ACUTE AND CHRONIC RESPIRATORY FAILURE WITH HYPOXIA J96.22 - ACUTE AND CHRONIC RESPIRATORY FAILURE WITH HYPERCAPNIA (6) Alteration consciousness Code(s): R40.4 - TRANSIENT ALTERATION OF AWARENESS Assessment/Plan FOLLOW CULTURES FREQUENT SUCTIONING IF CONDITION WORSENS CAN PROVIDE MV CT CHEST BRONCHODILATORS ANTIBIOTICS CT CHEST DR DUPONT
--- NOTE | 2016-10-30 14:12 | PN ---
Progress Note, Physician Chief Complaint: came back from CT - Current Medication List Current Medications: Active Medications Acetaminophen (Tylenol -) 650 mg PO Q6H PRN PRN Reason: FEVER OR PAIN Albuterol/Ipratropium (Duoneb -) 1 amp NEB QIDR [facility] Last Admin: 10/30/16 11:00 Dose: 1 amp Amino Acids (Prosource No Carb Liquid Pkt) 30 ml PO BID@0800,1730 [facility] Aspirin (Asa -) 81 mg GT DAILY [facility] Last Admin: 10/30/16 10:19 Dose: 81 mg Budesonide (Pulmicort 0.25 Mg Nebulizer -) 1 amp NEB BID [facility] Last Admin: 10/30/16 11:00 Dose: 1 amp Enoxaparin Sodium (Lovenox -) 40 mg SQ DAILY [facility] Last Admin: 10/30/16 10:18 Dose: 40 mg Piperacillin Sod/Tazobactam Sod (Zosyn 3.375gm Ivpb (Pre-Docked)) 50 mls @ 100 mls/hr IVPB BID [facility] PRN Reason: Protocol Last Admin: 10/30/16 10:18 Dose: 100 mls/hr Prednisone (Deltasone -) 10 mg GT DAILY [facility] Last Admin: 10/30/16 10:19 Dose: 10 mg Sodium Chloride (Normal Saline -) 250 ml IV Q20M PRN PRN Reason: MAP<65mm Hg OR SBP <90 Last Admin: 10/28/16 22:19 Dose: 250 ml Thyroid ([place] Thyroid -) 60 mg PO DAILY [facility] Last Admin: 10/30/16 10:19 Dose: 60 mg - Objective Vital Signs: Vital Signs Temperature 98.9 F 10/30/16 10:00 Pulse Rate 105 H 10/30/16 11:18 Respiratory Rate 20 10/30/16 10:00 Blood Pressure 109/70 10/30/16 10:00 O2 Sat by Pulse Oximetry (%) 90 L 10/30/16 11:18 Constitutional: Yes: Calm Neck: Yes: Other (trach) Cardiovascular: Yes: Regular Rate and Rhythm, S1, S2 Respiratory: Yes: Diminished (on right), Rhonchi Gastrointestinal: Yes: Normal Bowel Sounds, Soft Edema: No Neurological: Yes: Alert Labs: CBC, BMP 10/30/16 06:00 10/30/16 06:00 INR, PTT INR 1.12 (0.82-1.09) 10/28/16 21:50 Problem List - Problems (1) Muscular dystrophy Assessment/Plan: s/p trach Code(s): G71.0 - MUSCULAR DYSTROPHY (2) A-fib Assessment/Plan: lovenox Code(s): I48.91 - UNSPECIFIED ATRIAL FIBRILLATION Qualifiers: Atrial fibrillation type: paroxysmal Qualified Code(s): I48.0 - Paroxysmal atrial fibrillation (3) Acute on chronic respiratory failure with hypoxia and hypercapnia Assessment/Plan: CT chest noted bilatral effusion and lower lobe atelectasis PUlm on board bronchodilators frquent suctioning iv abx Code(s): J96.21 - ACUTE AND CHRONIC RESPIRATORY FAILURE WITH HYPOXIA J96.22 - ACUTE AND CHRONIC RESPIRATORY FAILURE WITH HYPERCAPNIA (4) Hypothyroid Assessment/Plan: thyroid med Code(s): E03.9 - HYPOTHYROIDISM, UNSPECIFIED (5) Pleural effusion Assessment/Plan: Mechanical ventilation frequwnt suctioning will monitor cxr noted for right side opacification Code(s): J90 - PLEURAL EFFUSION, NOT ELSEWHERE CLASSIFIED
--- NOTE | 2016-10-30 15:59 | PN ---
Progress Note, Physician Chief Complaint: ID Day 2 Zosyn - Current Medication List Current Medications: Active Medications Acetaminophen (Tylenol -) 650 mg PO Q6H PRN PRN Reason: FEVER OR PAIN Albuterol/Ipratropium (Duoneb -) 1 amp NEB QIDR [facility] Last Admin: 10/30/16 11:00 Dose: 1 amp Amino Acids (Prosource No Carb Liquid Pkt) 30 ml PO BID@0800,1730 [facility] Aspirin (Asa -) 81 mg GT DAILY [facility] Last Admin: 10/30/16 10:19 Dose: 81 mg Budesonide (Pulmicort 0.25 Mg Nebulizer -) 1 amp NEB BID [facility] Last Admin: 10/30/16 11:00 Dose: 1 amp Enoxaparin Sodium (Lovenox -) 40 mg SQ DAILY [facility] Last Admin: 10/30/16 10:18 Dose: 40 mg Piperacillin Sod/Tazobactam Sod (Zosyn 3.375gm Ivpb (Pre-Docked)) 50 mls @ 100 mls/hr IVPB BID [facility] PRN Reason: Protocol Last Admin: 10/30/16 10:18 Dose: 100 mls/hr Prednisone (Deltasone -) 10 mg GT DAILY [facility] Last Admin: 10/30/16 10:19 Dose: 10 mg Sodium Chloride (Normal Saline -) 250 ml IV Q20M PRN PRN Reason: MAP<65mm Hg OR SBP <90 Last Admin: 10/28/16 22:19 Dose: 250 ml Thyroid ([place] Thyroid -) 60 mg PO DAILY [facility] Last Admin: 10/30/16 10:19 Dose: 60 mg - Objective Vital Signs: Vital Signs Temperature 98.2 F 10/30/16 14:58 Pulse Rate 103 H 10/30/16 14:58 Respiratory Rate 19 10/30/16 14:58 Blood Pressure 88/57 10/30/16 14:58 O2 Sat by Pulse Oximetry (%) 90 L 10/30/16 11:18 Neck: Yes: Other (Trach) Cardiovascular: Yes: S1, S2 Respiratory: Yes: WNL, Regular, CTA Bilaterally, Diminished Gastrointestinal: Yes: WNL, Normal Bowel Sounds. No: Tenderness Edema: No Labs: CBC, BMP 10/30/16 06:00 10/30/16 06:00 INR, PTT INR 1.12 (0.82-1.09) 10/28/16 21:50 Assessment/Plan Microbiology 10/29/16 20:45 Urine For Antigen Detection Legionella Antigen - Final 10/29/16 20:45 Urine For Antigen Detection Streptococcus pneumoniae Antigen (M - Final 10/28/16 21:50 Sputum - Endotrachea Suction/Ventilator Gram Stain - Final 10/29/16 01:01 Nasopharyngeal Swab Respiratory Virus Panel - Preliminary 10/28/16 21:50 Sputum - Endotrachea Suction/Ventilator Sputum Culture - Preliminary Proteus Species 10/28/16 21:50 Blood - Peripheral Venous Blood Culture - Preliminary NO GROWTH OBTAINED AFTER 24 HOURS, INCUBATION TO CONTINUE FOR 4 DAYS. 10/28/16 21:50 Blood - Peripheral Venous Blood Culture - Preliminary NO GROWTH OBTAINED AFTER 24 HOURS, INCUBATION TO CONTINUE FOR 4 DAYS. Laboratory Tests 10/30/16 10/30/16 06:00 06:00 WBC 8.6 Hgb 11.4 L Plt Count 178 BUN 10 D Assessment Pneumonia opacified hemithorax with effusion Plan Continue current antibiotic Radha CROSS
[2016-10-30] MEDS: AMINO ACIDS/PROTEIN HYDROLYS 30 ML LIQUID.PKT PO SCH (17:11)
[2016-10-31] MEDS: ALBUTEROL SO4 2.5/IPRATROPIUM 0.5 INH SOL 3 ML VIAL.NEB. NEB SCH ×4 (06:58→23:15)
[2016-10-31 07:43] LABS: ARTERIAL BLD GAS O2 SATURATION 97.7 % (90-98.9); ARTERIAL BLOOD GAS BASE EXCESS 11.5 meq/l (-2-2); ARTERIAL BLOOD GAS HCO3 39.2 meq/L (22-26); ARTERIAL BLOOD GAS PO2 99.2 mmHg (80-100); ARTERIAL BLOOD GAS pH 7.36 (7.35-7.45)
[2016-10-31 07:44] LABS: ALLENS TEST POSITIVE; ART PUNCT SITE LEFT RADIAL; LPM/O2% 100%; PT. ON O2? YES
[2016-10-31 07:45] LABS: TYPE OF O2 TRACH COLLAR
[2016-10-31] MEDS: AMINO ACIDS/PROTEIN HYDROLYS 30 ML LIQUID.PKT PO SCH ×2 (08:00→16:33)
--- NOTE | 2016-10-31 09:10 | PN ---
Progress Note, Physician Chief Complaint: in bed sleeping ABG noted - Current Medication List Current Medications: Active Medications Acetaminophen (Tylenol -) 650 mg PO Q6H PRN PRN Reason: FEVER OR PAIN Albuterol/Ipratropium (Duoneb -) 1 amp NEB QIDR [facility] Last Admin: 10/31/16 06:58 Dose: 1 amp Amino Acids (Prosource No Carb Liquid Pkt) 30 ml PO BID@0800,1730 [facility] Last Admin: 10/30/16 17:11 Dose: 30 ml Aspirin (Asa -) 81 mg GT DAILY [facility] Last Admin: 10/30/16 10:19 Dose: 81 mg Budesonide (Pulmicort 0.25 Mg Nebulizer -) 1 amp NEB BID [facility] Last Admin: 10/30/16 21:45 Dose: 1 amp Enoxaparin Sodium (Lovenox -) 40 mg SQ DAILY [facility] Last Admin: 10/30/16 10:18 Dose: 40 mg Piperacillin Sod/Tazobactam Sod (Zosyn 3.375gm Ivpb (Pre-Docked)) 50 mls @ 100 mls/hr IVPB BID [facility] PRN Reason: Protocol Last Admin: 10/30/16 22:50 Dose: 100 mls/hr Prednisone (Deltasone -) 10 mg GT DAILY [facility] Last Admin: 10/30/16 10:19 Dose: 10 mg Sodium Chloride (Normal Saline -) 250 ml IV Q20M PRN PRN Reason: MAP<65mm Hg OR SBP <90 Last Admin: 10/28/16 22:19 Dose: 250 ml Thyroid ([place] Thyroid -) 60 mg PO DAILY [facility] Last Admin: 10/30/16 10:19 Dose: 60 mg - Objective Vital Signs: Vital Signs Temperature 97.6 F 10/31/16 06:00 Pulse Rate 89 10/31/16 06:55 Respiratory Rate 18 10/31/16 06:00 Blood Pressure 103/57 10/31/16 06:00 O2 Sat by Pulse Oximetry (%) 100 10/31/16 06:55 Constitutional: Yes: Calm Neck: Yes: Other (trach) Cardiovascular: Yes: S1, S2 Respiratory: Yes: Diminished Gastrointestinal: Yes: Normal Bowel Sounds, Soft Edema: No Neurological: Yes: Other (does respond to his name) Labs: CBC, BMP 10/30/16 06:00 10/30/16 06:00 INR, PTT INR 1.12 (0.82-1.09) 10/28/16 21:50 Problem List - Problems (1) Acute on chronic respiratory failure with hypoxia and hypercapnia Assessment/Plan: CT chest noted bilatral effusion and lower lobe atelectasis. right side opacification PUlm on board bronchodilators frquent suctioning iv abx per ID curently on 100 percent oxygen will decrease it Code(s): J96.21 - ACUTE AND CHRONIC RESPIRATORY FAILURE WITH HYPOXIA J96.22 - ACUTE AND CHRONIC RESPIRATORY FAILURE WITH HYPERCAPNIA (2) Muscular dystrophy Assessment/Plan: s/p trach Code(s): G71.0 - MUSCULAR DYSTROPHY (3) A-fib Assessment/Plan: lovenox Code(s): I48.91 - UNSPECIFIED ATRIAL FIBRILLATION Qualifiers: Atrial fibrillation type: paroxysmal Qualified Code(s): I48.0 - Paroxysmal atrial fibrillation (4) Hypothyroid Assessment/Plan: thyroid med Code(s): E03.9 - HYPOTHYROIDISM, UNSPECIFIED (5) Pleural effusion Assessment/Plan: Mechanical ventilation frequwnt suctioning will monitor cxr noted for right side opacification Code(s): J90 - PLEURAL EFFUSION, NOT ELSEWHERE CLASSIFIED
[2016-10-31] MEDS ORDERED: PT OWN MED DRAWER 7, Y5N ONE ×2 (10:23→22:47)
[2016-10-31] MEDS: ENOXAPARIN NA (PORCINE) 40 MG/0.4 ML DISP.SYRIN SQ SCH (10:58)
[2016-10-31] MEDS: PIPERACILLIN/TAZOB 3.375 GM 50 ML IVPB SCH ×3 (10:58→21:58)
[2016-10-31] MEDS: THYROID 60 MG TABLET PO SCH (10:59)
[2016-10-31] MEDS: predniSONE 10 MG TABLET (UD) GT SCH (10:59)
[2016-10-31] MEDS: ASPIRIN 81 MG CHEWABLE TABLETS GT SCH (10:59)
[2016-10-31] MEDS: BUDESONIDE 0.25 MG/2ML INH SUSP VIAL NEB SCH ×2 (11:00→22:51)
[2016-10-31] MEDS ORDERED: BUDESONIDE 0.5 MG/2 ML INH SUSP VIAL NEB ONE (11:03)
--- NOTE | 2016-10-31 14:03 | PN ---
Progress Note (short form) - Note Progress Note: ID Patient in NAD Zosyn day 2 Rx Afebrile Selected Entries 10/31/16 10/31/16 06:00 10:42 Temperature 97.6 F Pulse Rate 97 H Respiratory 18 Rate Blood Pressure 103/57 Lung Rhonchi bilateral Cor S1 S2 Abd Soft nontender Microbiology 10/29/16 20:45 Urine For Antigen Detection Legionella Antigen - Final 10/29/16 20:45 Urine For Antigen Detection Streptococcus pneumoniae Antigen (M - Final 10/28/16 22:10 Urine - Urine - Catheterized Urine Culture - Final NO GROWTH OBTAINED 10/28/16 21:50 Sputum - Endotrachea Suction/Ventilator Gram Stain - Final 10/29/16 01:01 Nasopharyngeal Swab Respiratory Virus Panel - Preliminary 10/28/16 21:50 Sputum - Endotrachea Suction/Ventilator Sputum Culture - Preliminary Pseudomonas Aeruginosa Proteus Species Laboratory Tests 10/30/16 10/31/16 06:00 07:25 WBC 8.6 Hgb 11.4 L Plt Count 178 ABG pH 7.36 ABG pCO2 at Pt Temp 71.3 H* D ABG pO2 at Pt Temp 99.2 D Assessment Muscular dystrophy with bilateral effusion moderate on right side afebrile normal WBC sensitive pseudomonas/Proteus Plan Continue Zosyn as ordered Radha CROSS
--- NOTE | 2016-10-31 16:34 | PN ---
Progress Note (short form) - Note Progress Note: PULMONARY AFEBRILE COPIOUS AMOUNTS OF SECRETIONS CXR: OPACIFICATION LEFT HEMITHORAX REMAINS LETHARGIC DIMINISHED BREATH SOUNDS LEFT S1S2 BS+ DIMINISHED EDEMA LABS/MEDS/NOTES/IMAGING/MICRO/ABG REVIEWED (1) Fever resolving Code(s): R50.9 - FEVER, UNSPECIFIED Qualifiers: Fever type: other Qualified Code(s): R50.81 - Fever presenting with conditions classified elsewhere (2) Muscular dystrophy Code(s): G71.0 - MUSCULAR DYSTROPHY (3) Pleural effusion Code(s): J90 - PLEURAL EFFUSION, NOT ELSEWHERE CLASSIFIED (4) A-fib Code(s): I48.91 - UNSPECIFIED ATRIAL FIBRILLATION Qualifiers: Atrial fibrillation type: paroxysmal Qualified Code(s): I48.0 - Paroxysmal atrial fibrillation (5) Acute on chronic respiratory failure with hypoxia and hypercapnia Code(s): J96.21 - ACUTE AND CHRONIC RESPIRATORY FAILURE WITH HYPOXIA J96.22 - ACUTE AND CHRONIC RESPIRATORY FAILURE WITH HYPERCAPNIA (6) Alteration consciousness Code(s): R40.4 - TRANSIENT ALTERATION OF AWARENESS (7) Hypercapneic respiratory failure Assessment/Plan FREQUENT SUCTIONING MONITOR ABG MAY NEED MVV F/U CXR BRONCHODILATORS/ANTIBIOTICS august rendon md Problem List - Problems (1) Fever Code(s): R50.9 - FEVER, UNSPECIFIED Qualifiers: Fever type: other Qualified Code(s): R50.81 - Fever presenting with conditions classified elsewhere (2) Muscular dystrophy Code(s): G71.0 - MUSCULAR DYSTROPHY (3) Pleural effusion Code(s): J90 - PLEURAL EFFUSION, NOT ELSEWHERE CLASSIFIED (4) A-fib Code(s): I48.91 - UNSPECIFIED ATRIAL FIBRILLATION Qualifiers: Atrial fibrillation type: paroxysmal Qualified Code(s): I48.0 - Paroxysmal atrial fibrillation (5) Acute on chronic respiratory failure with hypoxia and hypercapnia Code(s): J96.21 - ACUTE AND CHRONIC RESPIRATORY FAILURE WITH HYPOXIA J96.22 - ACUTE AND CHRONIC RESPIRATORY FAILURE WITH HYPERCAPNIA (6) Alteration consciousness Code(s): R40.4 - TRANSIENT ALTERATION OF AWARENESS
[2016-11-01] MEDS: PIPERACILLIN/TAZOB 3.375 GM 50 ML IVPB SCH ×4 (02:31→21:10)
[2016-11-01] MEDS: ALBUTEROL SO4 2.5/IPRATROPIUM 0.5 INH SOL 3 ML VIAL.NEB. NEB SCH ×4 (06:57→23:15)
[2016-11-01] MEDS: AMINO ACIDS/PROTEIN HYDROLYS 30 ML LIQUID.PKT PO SCH ×2 (08:33→21:09)
[2016-11-01] MEDS: BUDESONIDE 0.25 MG/2ML INH SUSP VIAL NEB SCH ×2 (10:00→22:58)
[2016-11-01] MEDS ORDERED: PT OWN MED DRAWER 7, Y5N ONE ×4 (10:21→22:53)
[2016-11-01] MEDS: ENOXAPARIN NA (PORCINE) 40 MG/0.4 ML DISP.SYRIN SQ SCH (10:29)
[2016-11-01] MEDS: ASPIRIN 81 MG CHEWABLE TABLETS GT SCH (10:29)
[2016-11-01] MEDS: predniSONE 10 MG TABLET (UD) GT SCH (10:29)
[2016-11-01] MEDS: THYROID 60 MG TABLET PO SCH (10:29)
--- NOTE | 2016-11-01 12:33 | PN ---
Progress Note, Physician Chief Complaint: CALM NO DISTRESS OCCASIONAL COUGH WITH UPPER AIRWAY CONGESTION - Current Medication List Current Medications: Active Medications Acetaminophen (Tylenol -) 650 mg PO Q6H PRN PRN Reason: FEVER OR PAIN Albuterol/Ipratropium (Duoneb -) 1 amp NEB QIDR [facility] Last Admin: 11/01/16 06:57 Dose: 1 amp Amino Acids (Prosource No Carb Liquid Pkt) 30 ml PO BID@0800,1730 [facility] Last Admin: 11/01/16 08:33 Dose: 30 ml Aspirin (Asa -) 81 mg GT DAILY [facility] Last Admin: 11/01/16 10:29 Dose: 81 mg Budesonide (Pulmicort 0.25 Mg Nebulizer -) 1 amp NEB BID [facility] Last Admin: 10/31/16 22:51 Dose: 1 amp Enoxaparin Sodium (Lovenox -) 40 mg SQ DAILY [facility] Last Admin: 11/01/16 10:29 Dose: 40 mg Piperacillin Sod/Tazobactam Sod (Zosyn 3.375gm Ivpb (Pre-Docked)) 50 mls @ 100 mls/hr IVPB Q6H-IV [facility] PRN Reason: Protocol Last Admin: 11/01/16 08:44 Dose: 100 mls/hr Prednisone (Deltasone -) 10 mg GT DAILY [facility] Last Admin: 11/01/16 10:29 Dose: 10 mg Sodium Chloride (Normal Saline -) 250 ml IV Q20M PRN PRN Reason: MAP<65mm Hg OR SBP <90 Last Admin: 10/28/16 22:19 Dose: 250 ml Thyroid ([place] Thyroid -) 60 mg PO DAILY [facility] Last Admin: 11/01/16 10:29 Dose: 60 mg - Objective Vital Signs: Vital Signs Temperature 98.7 F 11/01/16 12:29 Pulse Rate 85 11/01/16 10:28 Respiratory Rate 20 11/01/16 10:28 Blood Pressure 112/73 11/01/16 10:28 O2 Sat by Pulse Oximetry (%) 96 10/31/16 21:00 HENT: Yes: Other (TRACH. NO STRIDOR) Cardiovascular: Yes: WNL Respiratory: Yes: CTA Bilaterally Gastrointestinal: Yes: Normal Bowel Sounds, Soft Edema: No Labs: CBC, BMP 10/30/16 06:00 10/30/16 06:00 INR, PTT INR 1.12 (0.82-1.09) 10/28/16 21:50 Problem List - Problems (1) Fever Code(s): R50.9 - FEVER, UNSPECIFIED Qualifiers: Fever type: other Qualified Code(s): R50.81 - Fever presenting with conditions classified elsewhere (2) A-fib Code(s): I48.91 - UNSPECIFIED ATRIAL FIBRILLATION Qualifiers: Atrial fibrillation type: paroxysmal Qualified Code(s): I48.0 - Paroxysmal atrial fibrillation (3) Acute on chronic respiratory failure with hypoxia and hypercapnia Code(s): J96.21 - ACUTE AND CHRONIC RESPIRATORY FAILURE WITH HYPOXIA J96.22 - ACUTE AND CHRONIC RESPIRATORY FAILURE WITH HYPERCAPNIA (4) CHF (congestive heart failure) Code(s): I50.9 - HEART FAILURE, UNSPECIFIED (5) COPD exacerbation Code(s): J44.1 - CHRONIC OBSTRUCTIVE PULMONARY DISEASE W (ACUTE) EXACERBATION Assessment/Plan (1) Acute on chronic respiratory failure with hypoxia and hypercapnia Assessment/Plan: CT chest noted bilatral effusion and lower lobe atelectasis. right side opacification PUlm on board bronchodilators frquent suctioning iv abx per ID curently on oxygen Code(s): J96.21 - ACUTE AND CHRONIC RESPIRATORY FAILURE WITH HYPOXIA J96.22 - ACUTE AND CHRONIC RESPIRATORY FAILURE WITH HYPERCAPNIA (2) Muscular dystrophy Assessment/Plan: s/p trach Code(s): G71.0 - MUSCULAR DYSTROPHY (3) A-fib Assessment/Plan: lovenox Code(s): I48.91 - UNSPECIFIED ATRIAL FIBRILLATION Qualifiers: Atrial fibrillation type: paroxysmal Qualified Code(s): I48.0 - Paroxysmal atrial fibrillation (4) Hypothyroid Assessment/Plan: thyroid med Code(s): E03.9 - HYPOTHYROIDISM, UNSPECIFIED (5) Pleural effusion Assessment/Plan: Mechanical ventilation frequwnt suctioning will monitor cxr noted for right side opacification Code(s): J90 - PLEURAL EFFUSION, NOT ELSEWHERE CLASSIFIED [employer] FM
--- NOTE | 2016-11-01 12:37 | PN ---
Progress Note (short form) - Note Progress Note: PULMONARY AFEBRILE COPIOUS AMOUNTS OF SECRETIONS CONTINUE CXR: OPACIFICATION LEFT HEMITHORAX CT CHEST REVIEWED REMAINS LETHARGIC DIMINISHED BREATH SOUNDS LEFT S1S2 BS+ DIMINISHED EDEMA LABS/MEDS/NOTES/IMAGING/MICRO/ABG REVIEWED (1) Fever resolving Code(s): R50.9 - FEVER, UNSPECIFIED Qualifiers: Fever type: other Qualified Code(s): R50.81 - Fever presenting with conditions classified elsewhere (2) Muscular dystrophy Code(s): G71.0 - MUSCULAR DYSTROPHY (3) Pleural effusion Code(s): J90 - PLEURAL EFFUSION, NOT ELSEWHERE CLASSIFIED (4) A-fib Code(s): I48.91 - UNSPECIFIED ATRIAL FIBRILLATION Qualifiers: Atrial fibrillation type: paroxysmal Qualified Code(s): I48.0 - Paroxysmal atrial fibrillation (5) Acute on chronic respiratory failure with hypoxia and hypercapnia Code(s): J96.21 - ACUTE AND CHRONIC RESPIRATORY FAILURE WITH HYPOXIA J96.22 - ACUTE AND CHRONIC RESPIRATORY FAILURE WITH HYPERCAPNIA (6) Alteration consciousness Code(s): R40.4 - TRANSIENT ALTERATION OF AWARENESS (7) Hypercapneic respiratory failure Assessment/Plan FREQUENT SUCTIONING MONITOR ABG MAY NEED MVV F/U CXR BRONCHODILATORS/ANTIBIOTICS Chris KABA MD Problem List - Problems (1) Fever Code(s): R50.9 - FEVER, UNSPECIFIED Qualifiers: Fever type: other Qualified Code(s): R50.81 - Fever presenting with conditions classified elsewhere (2) Muscular dystrophy Code(s): G71.0 - MUSCULAR DYSTROPHY (3) Pleural effusion Code(s): J90 - PLEURAL EFFUSION, NOT ELSEWHERE CLASSIFIED (4) A-fib Code(s): I48.91 - UNSPECIFIED ATRIAL FIBRILLATION Qualifiers: Atrial fibrillation type: paroxysmal Qualified Code(s): I48.0 - Paroxysmal atrial fibrillation (5) Acute on chronic respiratory failure with hypoxia and hypercapnia Code(s): J96.21 - ACUTE AND CHRONIC RESPIRATORY FAILURE WITH HYPOXIA J96.22 - ACUTE AND CHRONIC RESPIRATORY FAILURE WITH HYPERCAPNIA (6) Alteration consciousness Code(s): R40.4 - TRANSIENT ALTERATION OF AWARENESS
[2016-11-01 14:50] LABS: ARTERIAL BLD GAS O2 SATURATION 95.3 % (90-98.9); ARTERIAL BLOOD GAS BASE EXCESS 12.8 meq/l (-2-2); ARTERIAL BLOOD GAS HCO3 39.5 meq/L (22-26); ARTERIAL BLOOD GAS PO2 76.4 mmHg (80-100)
[2016-11-01 14:52] LABS: ALLENS TEST POSITIVE; ART PUNCT SITE RIGHT RADIAL; LPM/O2% 50%; PT. ON O2? YES; TYPE OF O2 TRACH MASK
[2016-11-01] MEDS ORDERED: BUDESONIDE 0.5 MG/2 ML INH SUSP VIAL NEB ONE (22:55)
[2016-11-02] MEDS: PIPERACILLIN/TAZOB 3.375 GM 50 ML IVPB SCH ×4 (03:15→21:28)
[2016-11-02] MEDS: ALBUTEROL SO4 2.5/IPRATROPIUM 0.5 INH SOL 3 ML VIAL.NEB. NEB SCH ×4 (06:50→23:40)
[2016-11-02 08:09] LABS: BASOPHIL 0.9 % (0-2.0); MCH 26.5 pg (25.7-33.7); MCHC 31.7 g/dl (32.0-35.9); MEAN CELL VOLUME 83.6 fl (80-96); MEAN PLT VOLUME 8.1 fl (7.5-11.1); NEUTROPHILS 80.8 % (42.8-82.8); PLATELET COUNT 167 K/MM3 (134-434); RDW 15.8 % (11.9-15.9); WHITE BLOOD COUNT 6.2 K/mm3 (4.0-10.0)
[2016-11-02] MEDS: AMINO ACIDS/PROTEIN HYDROLYS 30 ML LIQUID.PKT PO SCH ×2 (08:49→18:03)
[2016-11-02 09:00] LABS: ALBUMIN 2.6 g/dl (3.4-5.0); ALK PHOS 81 U/L (45-117); ANION GAP 7 (8-16); BILIRUBIN,TOTAL 0.3 mg/dL (0.2-1.0); CALCIUM 8.4 mg/dL (8.5-10.1); CO2 39 mmol/L (21-32); CREATININE 0.3 mg/dL (0.7-1.3); GLUCOSE,RANDOM 123 mg/dL (74-106); SGOT/AST 45 U/L (15-37); SGPT/ALT 64 U/L (12-78); TOT PROT 5.7 g/dl (6.4-8.2)
--- NOTE | 2016-11-02 09:11 | PN ---
Progress Note, Physician Chief Complaint: calm - Current Medication List Current Medications: Active Medications Acetaminophen (Tylenol -) 650 mg PO Q6H PRN PRN Reason: FEVER OR PAIN Albuterol/Ipratropium (Duoneb -) 1 amp NEB QIDR [facility] Last Admin: 11/02/16 06:50 Dose: 1 amp Amino Acids (Prosource No Carb Liquid Pkt) 30 ml PO BID@0800,1730 [facility] Last Admin: 11/02/16 08:49 Dose: 30 ml Aspirin (Asa -) 81 mg GT DAILY [facility] Last Admin: 11/01/16 10:29 Dose: 81 mg Budesonide (Pulmicort 0.25 Mg Nebulizer -) 1 amp NEB BID [facility] Last Admin: 11/01/16 22:58 Dose: 1 amp Enoxaparin Sodium (Lovenox -) 40 mg SQ DAILY [facility] Last Admin: 11/01/16 10:29 Dose: 40 mg Piperacillin Sod/Tazobactam Sod (Zosyn 3.375gm Ivpb (Pre-Docked)) 50 mls @ 100 mls/hr IVPB Q6H-IV [facility] PRN Reason: Protocol Last Admin: 11/02/16 08:50 Dose: 100 mls/hr Prednisone (Deltasone -) 10 mg GT DAILY [facility] Last Admin: 11/01/16 10:29 Dose: 10 mg Sodium Chloride (Normal Saline -) 250 ml IV Q20M PRN PRN Reason: MAP<65mm Hg OR SBP <90 Last Admin: 10/28/16 22:19 Dose: 250 ml Thyroid ([place] Thyroid -) 60 mg PO DAILY [facility] Last Admin: 11/01/16 10:29 Dose: 60 mg - Objective Vital Signs: Vital Signs Temperature 98.7 F 11/01/16 22:00 Pulse Rate 87 11/01/16 22:00 Respiratory Rate 20 11/01/16 22:00 Blood Pressure 100/59 11/01/16 22:00 O2 Sat by Pulse Oximetry (%) 95 11/01/16 21:00 Constitutional: Yes: Calm Cardiovascular: Yes: WNL Respiratory: Yes: CTA Bilaterally Gastrointestinal: Yes: WNL Edema: No Labs: CBC, BMP 11/02/16 07:15 11/02/16 07:15 INR, PTT INR 1.12 (0.82-1.09) 10/28/16 21:50 Problem List - Problems (1) Fever Code(s): R50.9 - FEVER, UNSPECIFIED Qualifiers: Fever type: other Qualified Code(s): R50.81 - Fever presenting with conditions classified elsewhere (2) A-fib Code(s): I48.91 - UNSPECIFIED ATRIAL FIBRILLATION Qualifiers: Atrial fibrillation type: paroxysmal Qualified Code(s): I48.0 - Paroxysmal atrial fibrillation (3) Acute on chronic respiratory failure with hypoxia and hypercapnia Code(s): J96.21 - ACUTE AND CHRONIC RESPIRATORY FAILURE WITH HYPOXIA J96.22 - ACUTE AND CHRONIC RESPIRATORY FAILURE WITH HYPERCAPNIA (4) CHF (congestive heart failure) Code(s): I50.9 - HEART FAILURE, UNSPECIFIED (5) COPD exacerbation Code(s): J44.1 - CHRONIC OBSTRUCTIVE PULMONARY DISEASE W (ACUTE) EXACERBATION Assessment/Plan (1) Acute on chronic respiratory failure with hypoxia and hypercapnia Assessment/Plan: CT chest noted bilatral effusion and lower lobe atelectasis. right side opacification PUlm on board bronchodilators frquent suctioning -> a lot of secretions iv abx per ID curently on oxygen - f/u repeat cxr Code(s): J96.21 - ACUTE AND CHRONIC RESPIRATORY FAILURE WITH HYPOXIA J96.22 - ACUTE AND CHRONIC RESPIRATORY FAILURE WITH HYPERCAPNIA (2) Muscular dystrophy Assessment/Plan: s/p trach Code(s): G71.0 - MUSCULAR DYSTROPHY (3) A-fib Assessment/Plan: lovenox Code(s): I48.91 - UNSPECIFIED ATRIAL FIBRILLATION Qualifiers: Atrial fibrillation type: paroxysmal Qualified Code(s): I48.0 - Paroxysmal atrial fibrillation (4) Hypothyroid Assessment/Plan: thyroid med Code(s): E03.9 - HYPOTHYROIDISM, UNSPECIFIED (5) Pleural effusion Assessment/Plan: Mechanical ventilation frequwnt suctioning will monitor cxr noted for right side opacification -> repeat appears worse Code(s): J90 - PLEURAL EFFUSION, NOT ELSEWHERE CLASSIFIED [employer] FM
[2016-11-02] MEDS ORDERED: PT OWN MED DRAWER 7, Y5N ONE (10:02)
[2016-11-02] MEDS: BUDESONIDE 0.25 MG/2ML INH SUSP VIAL NEB SCH ×2 (11:00→22:25)
[2016-11-02] MEDS: ASPIRIN 81 MG CHEWABLE TABLETS GT SCH (11:04)
[2016-11-02] MEDS: ENOXAPARIN NA (PORCINE) 40 MG/0.4 ML DISP.SYRIN SQ SCH (11:04)
[2016-11-02] MEDS: predniSONE 10 MG TABLET (UD) GT SCH (11:05)
[2016-11-02] MEDS: THYROID 60 MG TABLET PO SCH ×3 (11:05→12:34)
--- NOTE | 2016-11-02 12:59 | PN ---
Progress Note (short form) - Note Progress Note: PULMONARY AFEBRILE COPIOUS AMOUNTS OF SECRETIONS CONTINUE TO BE SUCTIONED CXR: IMPROVED CT CHEST REVIEWED REMAINS LETHARGIC DIMINISHED B/L BREATH SOUNDS S1S2 BS+ DIMINISHED EDEMA LABS/MEDS/NOTES/IMAGING/MICRO/ABG REVIEWED (1) Fever resolved Code(s): R50.9 - FEVER, UNSPECIFIED Qualifiers: Fever type: other Qualified Code(s): R50.81 - Fever presenting with conditions classified elsewhere (2) Muscular dystrophy Code(s): G71.0 - MUSCULAR DYSTROPHY (3) Pleural effusion Code(s): J90 - PLEURAL EFFUSION, NOT ELSEWHERE CLASSIFIED (4) A-fib Code(s): I48.91 - UNSPECIFIED ATRIAL FIBRILLATION Qualifiers: Atrial fibrillation type: paroxysmal Qualified Code(s): I48.0 - Paroxysmal atrial fibrillation (5) Acute on chronic respiratory failure with hypoxia and hypercapnia Code(s): J96.21 - ACUTE AND CHRONIC RESPIRATORY FAILURE WITH HYPOXIA J96.22 - ACUTE AND CHRONIC RESPIRATORY FAILURE WITH HYPERCAPNIA (6) Alteration consciousness Code(s): R40.4 - TRANSIENT ALTERATION OF AWARENESS (7) Hypercapneic respiratory failure Assessment/Plan FREQUENT SUCTIONING MONITOR ABG MAY NEED MVV BRONCHODILATORS/ANTIBIOTICS Chris KABA MD Problem List - Problems (1) Fever Code(s): R50.9 - FEVER, UNSPECIFIED Qualifiers: Fever type: other Qualified Code(s): R50.81 - Fever presenting with conditions classified elsewhere (2) Muscular dystrophy Code(s): G71.0 - MUSCULAR DYSTROPHY (3) Pleural effusion Code(s): J90 - PLEURAL EFFUSION, NOT ELSEWHERE CLASSIFIED (4) A-fib Code(s): I48.91 - UNSPECIFIED ATRIAL FIBRILLATION Qualifiers: Atrial fibrillation type: paroxysmal Qualified Code(s): I48.0 - Paroxysmal atrial fibrillation (5) Acute on chronic respiratory failure with hypoxia and hypercapnia Code(s): J96.21 - ACUTE AND CHRONIC RESPIRATORY FAILURE WITH HYPOXIA J96.22 - ACUTE AND CHRONIC RESPIRATORY FAILURE WITH HYPERCAPNIA (6) Alteration consciousness Code(s): R40.4 - TRANSIENT ALTERATION OF AWARENESS
[2016-11-03] MEDS: PIPERACILLIN/TAZOB 3.375 GM 50 ML IVPB SCH ×4 (02:32→21:55)
[2016-11-03] MEDS: ALBUTEROL SO4 2.5/IPRATROPIUM 0.5 INH SOL 3 ML VIAL.NEB. NEB SCH (07:04)
[2016-11-03 07:06] LABS: BASOPHIL 0.3 % (0-2.0); EOSINOPHIL 1.8 % (0-4.5); MCH 26.4 pg (25.7-33.7); MCHC 31.6 g/dl (32.0-35.9); MEAN CELL VOLUME 83.4 fl (80-96); MEAN PLT VOLUME 8.3 fl (7.5-11.1); NEUTROPHILS 72.3 % (42.8-82.8); PLATELET COUNT 165 K/MM3 (134-434); RDW 16.1 % (11.9-15.9); WHITE BLOOD COUNT 4.9 K/mm3 (4.0-10.0)
[2016-11-03 07:41] LABS: ALBUMIN 2.7 g/dl (3.4-5.0); ANION GAP 5 (8-16); CALCIUM 8.9 mg/dL (8.5-10.1); CO2 42 mmol/L (21-32); GLUCOSE,RANDOM 96 mg/dL (74-106)
[2016-11-03 07:45] LABS: ALK PHOS 72 U/L (45-117); BILIRUBIN,TOTAL 0.3 mg/dL (0.2-1.0); CREATININE 0.3 mg/dL (0.7-1.3); SGOT/AST 56 U/L (15-37); SGPT/ALT 90 U/L (12-78); TOT PROT 5.8 g/dl (6.4-8.2)
[2016-11-03] MEDS: BUDESONIDE 0.25 MG/2ML INH SUSP VIAL NEB SCH ×2 (10:21→21:54)
[2016-11-03] MEDS ORDERED: PT OWN MED DRAWER 7, Y5N ONE (10:41)
[2016-11-03] MEDS: ENOXAPARIN NA (PORCINE) 40 MG/0.4 ML DISP.SYRIN SQ SCH (10:44)
[2016-11-03] MEDS: ASPIRIN 81 MG CHEWABLE TABLETS GT SCH (10:44)
[2016-11-03] MEDS: predniSONE 10 MG TABLET (UD) GT SCH (10:44)
[2016-11-03] MEDS: THYROID 60 MG TABLET PO SCH (10:45)
[2016-11-03] MEDS: AMINO ACIDS/PROTEIN HYDROLYS 30 ML LIQUID.PKT PO SCH ×2 (11:14→17:16)
--- NOTE | 2016-11-03 11:43 | PN ---
Progress Note, Physician Chief Complaint: lying comfortably in bed - Current Medication List Current Medications: Active Medications Acetaminophen (Tylenol -) 650 mg PO Q6H PRN PRN Reason: FEVER OR PAIN Amino Acids (Prosource No Carb Liquid Pkt) 30 ml PO BID@0800,1730 [facility] Last Admin: 11/03/16 11:14 Dose: Not Given Aspirin (Asa -) 81 mg GT DAILY [facility] Last Admin: 11/03/16 10:44 Dose: 81 mg Budesonide (Pulmicort 0.25 Mg Nebulizer -) 1 amp NEB BID [facility] Last Admin: 11/02/16 22:25 Dose: 1 amp Enoxaparin Sodium (Lovenox -) 40 mg SQ DAILY [facility] Last Admin: 11/03/16 10:44 Dose: 40 mg Piperacillin Sod/Tazobactam Sod (Zosyn 3.375gm Ivpb (Pre-Docked)) 50 mls @ 100 mls/hr IVPB Q6H-IV [facility] PRN Reason: Protocol Last Admin: 11/03/16 10:44 Dose: 100 mls/hr Prednisone (Deltasone -) 10 mg GT DAILY [facility] Last Admin: 11/03/16 10:44 Dose: 10 mg Sodium Chloride (Normal Saline -) 250 ml IV Q20M PRN PRN Reason: MAP<65mm Hg OR SBP <90 Last Admin: 10/28/16 22:19 Dose: 250 ml Thyroid ([place] Thyroid -) 60 mg PO DAILY [facility] Last Admin: 11/03/16 10:45 Dose: 60 mg - Objective Vital Signs: Vital Signs Temperature 98.3 F 11/03/16 06:00 Pulse Rate 86 11/03/16 06:00 Respiratory Rate 20 11/03/16 06:00 Blood Pressure 124/70 11/03/16 06:00 O2 Sat by Pulse Oximetry (%) 98 11/02/16 21:00 Constitutional: Yes: Calm Neck: Yes: Other (trach) Cardiovascular: Yes: Regular Rate and Rhythm, S1, S2 Respiratory: Yes: Diminished (better aeration on left side) Gastrointestinal: Yes: Normal Bowel Sounds, Soft Edema: No Neurological: Yes: Alert (responds to his name and commands), Weakness Labs: CBC, BMP 11/03/16 06:35 11/03/16 06:35 INR, PTT INR 1.12 (0.82-1.09) 10/28/16 21:50 Problem List - Problems (1) Acute on chronic respiratory failure with hypoxia and hypercapnia Assessment/Plan: CT chest noted bilatral effusion and lower lobe atelectasis. right side opacification PUlm on board bronchodilators frquent suctioning iv abx zosyn day 5 Code(s): J96.21 - ACUTE AND CHRONIC RESPIRATORY FAILURE WITH HYPOXIA J96.22 - ACUTE AND CHRONIC RESPIRATORY FAILURE WITH HYPERCAPNIA (2) Muscular dystrophy Assessment/Plan: s/p trach Code(s): G71.0 - MUSCULAR DYSTROPHY (3) A-fib Assessment/Plan: lovenox Code(s): I48.91 - UNSPECIFIED ATRIAL FIBRILLATION Qualifiers: Atrial fibrillation type: paroxysmal Qualified Code(s): I48.0 - Paroxysmal atrial fibrillation (4) Hypothyroid Assessment/Plan: thyroid med Code(s): E03.9 - HYPOTHYROIDISM, UNSPECIFIED (5) Pleural effusion Assessment/Plan: Mechanical ventilation frequwnt suctioning will monitor cxr noted for right side opacification Code(s): J90 - PLEURAL EFFUSION, NOT ELSEWHERE CLASSIFIED
--- NOTE | 2016-11-03 12:33 | PN ---
Progress Note, Physician History of Present Illness: pulmonary lethargic,-resp distress,+ tracheal secretions - Current Medication List Current Medications: Active Medications Acetaminophen (Tylenol -) 650 mg PO Q6H PRN PRN Reason: FEVER OR PAIN Amino Acids (Prosource No Carb Liquid Pkt) 30 ml PO BID@0800,1730 [facility] Last Admin: 11/03/16 11:14 Dose: Not Given Aspirin (Asa -) 81 mg GT DAILY [facility] Last Admin: 11/03/16 10:44 Dose: 81 mg Budesonide (Pulmicort 0.25 Mg Nebulizer -) 1 amp NEB BID [facility] Last Admin: 11/03/16 10:21 Dose: 1 amp Enoxaparin Sodium (Lovenox -) 40 mg SQ DAILY [facility] Last Admin: 11/03/16 10:44 Dose: 40 mg Piperacillin Sod/Tazobactam Sod (Zosyn 3.375gm Ivpb (Pre-Docked)) 50 mls @ 100 mls/hr IVPB Q6H-IV [facility] PRN Reason: Protocol Last Admin: 11/03/16 10:44 Dose: 100 mls/hr Prednisone (Deltasone -) 10 mg GT DAILY [facility] Last Admin: 11/03/16 10:44 Dose: 10 mg Sodium Chloride (Normal Saline -) 250 ml IV Q20M PRN PRN Reason: MAP<65mm Hg OR SBP <90 Last Admin: 10/28/16 22:19 Dose: 250 ml Thyroid ([place] Thyroid -) 60 mg PO DAILY [facility] Last Admin: 11/03/16 10:45 Dose: 60 mg - Objective Vital Signs: Vital Signs Temperature 98.3 F 11/03/16 06:00 Pulse Rate 86 11/03/16 12:22 Respiratory Rate 20 11/03/16 06:00 Blood Pressure 124/70 11/03/16 06:00 O2 Sat by Pulse Oximetry (%) 98 11/03/16 12:22 Constitutional: Yes: Well Nourished, Other (lethargic) Eyes: Yes: WNL HENT: Yes: WNL Neck: Yes: Supple (trach) Cardiovascular: Yes: Pulse Irregular, S1, S2 Respiratory: Yes: Diminished Gastrointestinal: Yes: Normal Bowel Sounds, Soft Extremities: Yes: WNL Edema: No Labs: CBC, BMP 11/03/16 06:35 11/03/16 06:35 INR, PTT INR 1.12 (0.82-1.09) 10/28/16 21:50 - ....Imaging Chest X-ray: Report Reviewed, Image Reviewed Assessment/Plan Problem List - Problems (1) Fever Code(s): R50.9 - FEVER, UNSPECIFIED Qualifiers: Fever type: other Qualified Code(s): R50.81 - Fever presenting with conditions classified elsewhere (2) Muscular dystrophy Code(s): G71.0 - MUSCULAR DYSTROPHY (3) Pleural effusion Code(s): J90 - PLEURAL EFFUSION, NOT ELSEWHERE CLASSIFIED (4) A-fib Code(s): I48.91 - UNSPECIFIED ATRIAL FIBRILLATION Qualifiers: Atrial fibrillation type: paroxysmal Qualified Code(s): I48.0 - Paroxysmal atrial fibrillation (5) Acute on chronic respiratory failure with hypoxia and hypercapnia Code(s): J96.21 - ACUTE AND CHRONIC RESPIRATORY FAILURE WITH HYPOXIA J96.22 - ACUTE AND CHRONIC RESPIRATORY FAILURE WITH HYPERCAPNIA (6) Alteration consciousness Code(s): R40.4 - TRANSIENT ALTERATION OF AWARENESS Assessment/Plan FREQUENT SUCTIONING F/U CXR BRONCHODILATORS ANTIBIOTICS DR WILEY
--- NOTE | 2016-11-03 15:44 | PN ---
Progress Note, Physician History of Present Illness: Awake, alert No acute distress Breathing non-labored Afebrile - Current Medication List Current Medications: Active Medications Acetaminophen (Tylenol -) 650 mg PO Q6H PRN PRN Reason: FEVER OR PAIN Amino Acids (Prosource No Carb Liquid Pkt) 30 ml PO BID@0800,1730 [facility] Last Admin: 11/03/16 11:14 Dose: Not Given Aspirin (Asa -) 81 mg GT DAILY [facility] Last Admin: 11/03/16 10:44 Dose: 81 mg Budesonide (Pulmicort 0.25 Mg Nebulizer -) 1 amp NEB BID [facility] Last Admin: 11/03/16 10:21 Dose: 1 amp Enoxaparin Sodium (Lovenox -) 40 mg SQ DAILY [facility] Last Admin: 11/03/16 10:44 Dose: 40 mg Piperacillin Sod/Tazobactam Sod (Zosyn 3.375gm Ivpb (Pre-Docked)) 50 mls @ 100 mls/hr IVPB Q6H-IV [facility] PRN Reason: Protocol Last Admin: 11/03/16 10:44 Dose: 100 mls/hr Prednisone (Deltasone -) 10 mg GT DAILY [facility] Last Admin: 11/03/16 10:44 Dose: 10 mg Sodium Chloride (Normal Saline -) 250 ml IV Q20M PRN PRN Reason: MAP<65mm Hg OR SBP <90 Last Admin: 10/28/16 22:19 Dose: 250 ml Thyroid ([place] Thyroid -) 60 mg PO DAILY [facility] Last Admin: 11/03/16 10:45 Dose: 60 mg - Objective Vital Signs: Vital Signs Temperature 98.7 F 11/03/16 14:14 Pulse Rate 93 H 11/03/16 14:14 Respiratory Rate 20 11/03/16 14:14 Blood Pressure 107/61 11/03/16 14:14 O2 Sat by Pulse Oximetry (%) 98 11/03/16 12:22 Constitutional: Yes: No Distress Eyes: Yes: Conjunctiva Clear Cardiovascular: Yes: Regular Rate and Rhythm, S1, S2 Respiratory: Yes: Diminished Gastrointestinal: Yes: Normal Bowel Sounds, Soft. No: Tenderness Extremities: No: Other Labs: CBC, BMP 11/03/16 06:35 11/03/16 06:35 INR, PTT INR 1.12 (0.82-1.09) 10/28/16 21:50 Assessment/Plan RLL pneumonia Respiratory failure COPD exacerbation Muscular dystrophy Continue breannan
[2016-11-04] MEDS: PIPERACILLIN/TAZOB 3.375 GM 50 ML IVPB SCH ×4 (03:04→21:04)
[2016-11-04] MEDS ORDERED: PT OWN MED DRAWER 7, Y5N ONE ×2 (08:09→09:12)
[2016-11-04] MEDS: AMINO ACIDS/PROTEIN HYDROLYS 30 ML LIQUID.PKT PO SCH ×2 (08:36→18:42)
--- NOTE | 2016-11-04 08:51 | DS ---
Physical Examination Vital Signs: Vital Signs Temperature 98.8 F 11/04/16 05:00 Pulse Rate 63 11/04/16 05:00 Respiratory Rate 20 11/04/16 05:00 Blood Pressure 148/91 11/04/16 05:00 O2 Sat by Pulse Oximetry (%) 98 11/03/16 21:00 Labs: CBC, BMP 11/03/16 06:35 11/03/16 06:35 Discharge Summary Reason For Visit: MUSCULAR DYSTROPHY PLEURAL EFFUSION FEVER Current Active Problems Fever (Acute) Muscular dystrophy (Acute) Pleural effusion (Acute) Hospital Course: History of Present Illness: 55 year old male from [facility] with significant medical hx of COPD, AFib, muscular dystrophy, CHF, asthma, hypothyroidism, tracheostomy, acute and chronic respiratory failure with hypoxia, GERD, and recent bacterial pneumonia who has been sent to the ED for decreased O2Sat and fever. Patient was found to have O2Sat at 87% and a temperature of 100.1 today. Patient was recently diagnosed with pneumonia (see past chest x-ray below) and is currently on Levaquin 500mg via G Tube daily x 7 days. 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 right side opacification PUlm on board bronchodilators frequent suctioning iv abx zosyn day 5 Code(s): J96.21 - ACUTE AND CHRONIC RESPIRATORY FAILURE WITH HYPOXIA J96.22 - ACUTE AND CHRONIC RESPIRATORY FAILURE WITH HYPERCAPNIA (2) Muscular dystrophy Assessment/Plan: s/p trach Code(s): G71.0 - MUSCULAR DYSTROPHY (3) A-fib Assessment/Plan: lovenox Code(s): I48.91 - UNSPECIFIED ATRIAL FIBRILLATION Qualifiers: Atrial fibrillation type: paroxysmal Qualified Code(s): I48.0 - Paroxysmal atrial fibrillation (4) Hypothyroid Assessment/Plan: thyroid med Code(s): E03.9 - HYPOTHYROIDISM, UNSPECIFIED (5) Pleural effusion Assessment/Plan: Mechanical ventilation frequent suctioning will monitor cxr Code(s): J90 - PLEURAL EFFUSION, NOT ELSEWHERE CLASSIFIED Condition: Stable - Instructions Referrals: Nicholas Layton MD [Primary Care Provider] - - Home Medications Comprehensive Discharge Medication List: Ambulatory Orders Aspirin [ASA -] 81 mg GT DAILY 10/14/16 Budesonide [Pulmicort 0.25 mg Nebulizer -] 1 neb PO BID 10/14/16 Enoxaparin [Lovenox -] 40 mg SQ DAILY 10/14/16 Thyroid [[place] Thyroid] 60 mg PO DAILY 10/14/16 Acetaminophen [Tylenol .Regular Strength -] 650 mg PO Q6H PRN #0 tablet Albuterol 2.5/Ipratropium 0.5 [Duoneb -] 1 amp NEB QIDR amp 10/17/16 Prednisone 10 mg GT DAILY 10/18/16 Levofloxacin [Levaquin -] 500 mg GT DAILY 10/28/16
[2016-11-04] MEDS ORDERED: BUDESONIDE 0.5 MG/2 ML INH SUSP VIAL NEB ONE ×2 (09:23→22:15)
[2016-11-04] MEDS: THYROID 60 MG TABLET PO SCH (09:24)
[2016-11-04] MEDS: ASPIRIN 81 MG CHEWABLE TABLETS GT SCH (09:24)
[2016-11-04] MEDS: predniSONE 10 MG TABLET (UD) GT SCH (09:24)
[2016-11-04] MEDS: ENOXAPARIN NA (PORCINE) 40 MG/0.4 ML DISP.SYRIN SQ SCH (09:25)
[2016-11-04] MEDS: BUDESONIDE 0.25 MG/2ML INH SUSP VIAL NEB SCH ×2 (09:55→22:20)
--- NOTE | 2016-11-04 11:21 | PN ---
Progress Note, Physician History of Present Illness: Awake, responsive + tracheal secretions Breathing non-labored Afebrile WBC WNL - Current Medication List Current Medications: Active Medications Acetaminophen (Tylenol -) 650 mg PO Q6H PRN PRN Reason: FEVER OR PAIN Amino Acids (Prosource No Carb Liquid Pkt) 30 ml PO BID@0800,1730 [facility] Last Admin: 11/04/16 08:36 Dose: 30 ml Aspirin (Asa -) 81 mg GT DAILY [facility] Last Admin: 11/04/16 09:24 Dose: 81 mg Budesonide (Pulmicort 0.25 Mg Nebulizer -) 1 amp NEB BID [facility] Last Admin: 11/04/16 09:55 Dose: 1 amp Enoxaparin Sodium (Lovenox -) 40 mg SQ DAILY [facility] Last Admin: 11/04/16 09:25 Dose: 40 mg Piperacillin Sod/Tazobactam Sod (Zosyn 3.375gm Ivpb (Pre-Docked)) 50 mls @ 100 mls/hr IVPB Q6H-IV MIRZA PRN Reason: Protocol Last Admin: 11/04/16 08:35 Dose: 100 mls/hr Prednisone (Deltasone -) 10 mg GT DAILY [facility] Last Admin: 11/04/16 09:24 Dose: 10 mg Sodium Chloride (Normal Saline -) 250 ml IV Q20M PRN PRN Reason: MAP<65mm Hg OR SBP <90 Last Admin: 10/28/16 22:19 Dose: 250 ml Thyroid ([place] Thyroid -) 60 mg PO DAILY [facility] Last Admin: 11/04/16 09:24 Dose: 60 mg - Objective Vital Signs: Vital Signs Temperature 98.0 F 11/04/16 09:00 Pulse Rate 76 11/04/16 09:00 Respiratory Rate 20 11/04/16 09:00 Blood Pressure 110/56 11/04/16 09:00 O2 Sat by Pulse Oximetry (%) 98 11/03/16 21:00 Constitutional: Yes: No Distress Eyes: Yes: Conjunctiva Clear HENT: Yes: Other (+ trach with secretions) Cardiovascular: Yes: Regular Rate and Rhythm, S1, S2 Respiratory: Yes: Rhonchi Gastrointestinal: Yes: Normal Bowel Sounds, Soft. No: Tenderness Edema: No Labs: CBC, BMP 11/03/16 06:35 11/03/16 06:35 INR, PTT INR 1.12 (0.82-1.09) 10/28/16 21:50 Assessment/Plan RLL pneumonia + sputum c/s Pseudomonas Respiratory failure COPD exacerbation Muscular dystrophy Day # 7 zosyn Complete 10d course No objection to completion of therapy at [place]
--- NOTE | 2016-11-04 12:32 | PN ---
Progress Note (short form) - Note Progress Note: PULMONARY Somnolent on trach collar. No fevers recorded. Last Vital Signs Temp Pulse Resp BP Pulse Ox 98.0 F 76 20 110/56 94 L 11/04/16 09:00 11/04/16 09:00 11/04/16 09:00 11/04/16 09:00 11/04/16 09:00 Gen: breathing nonlabored Heart: RRR Lung: decreased breath sounds at the bases Abd: soft, nontender Ext: no edema CBC, BMP 11/03/16 06:35 11/03/16 06:35 Active Medications Acetaminophen (Tylenol -) 650 mg PO Q6H PRN PRN Reason: FEVER OR PAIN Amino Acids (Prosource No Carb Liquid Pkt) 30 ml PO BID@0800,1730 [facility] Last Admin: 11/04/16 08:36 Dose: 30 ml Aspirin (Asa -) 81 mg GT DAILY [facility] Last Admin: 11/04/16 09:24 Dose: 81 mg Budesonide (Pulmicort 0.25 Mg Nebulizer -) 1 amp NEB BID [facility] Last Admin: 11/04/16 09:55 Dose: 1 amp Enoxaparin Sodium (Lovenox -) 40 mg SQ DAILY [facility] Last Admin: 11/04/16 09:25 Dose: 40 mg Piperacillin Sod/Tazobactam Sod (Zosyn 3.375gm Ivpb (Pre-Docked)) 50 mls @ 100 mls/hr IVPB Q6H-IV MIRZA PRN Reason: Protocol Last Admin: 11/04/16 08:35 Dose: 100 mls/hr Prednisone (Deltasone -) 10 mg GT DAILY [facility] Last Admin: 11/04/16 09:24 Dose: 10 mg Sodium Chloride (Normal Saline -) 250 ml IV Q20M PRN PRN Reason: MAP<65mm Hg OR SBP <90 Last Admin: 10/28/16 22:19 Dose: 250 ml Thyroid ([place] Thyroid -) 60 mg PO DAILY [facility] Last Admin: 11/04/16 09:24 Dose: 60 mg A/P Pneumonia COPD Muscular Dystrophy s/p tracheostomy Chronic Hypoxic and Hypercapneic Respiratory Failure Atrial Fibrillation - continue antibiotics - chest PT/pulmonary toilet - aspiration precautions - O2 to keep SPo2 >90% - DVT prophylaxis
--- NOTE | 2016-11-04 15:31 | CON.GI ---
Consult Consult Specialty:: Gastroenterology Referred by:: Dr Layton - History of Present Illness Chief Complaint: clogged gastrostomy tube History of Present Illness: 55 year old male from [facility] with significant medical hx of COPD, AFib, muscular dystrophy, CHF, asthma, hypothyroidism, tracheostomy, acute and chronic respiratory failure with hypoxia, GERD, and recent bacterial pneumonia who has been sent to the ED for decreased O2Sat and fever. Patient was found to have O2Sat at 87% and a temperature of 100.1 today. Patient was recently diagnosed with pneumonia (see past chest x-ray below) and is currently on Levaquin 500mg via G Tube daily x 7 days. The tube was clogged ask to replace the tube. 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 ROS: Not possible since pt is intubated - Alcohol/Substance Use Hx Alcohol Use: No History of Substance Use: reports: None - Smoking History Smoking history: Former smoker Have you smoked in the past 12 months: No Aproximately how many cigarettes per day: 0 If you are a former smoker, when did you quit?: 1997 - Social History Usual Living Arrangement: Other (he lives in an appartment, she takes care of him. He has Homehealth aid from morning to 1 pm. He is alone from 1-8pm. He doesnt ambulate much as baseline and has garbled speech.) ADL: Support Services History of Recent Travel: No Home Medications - Allergies Allergies/Adverse Reactions: Allergies Allergy/AdvReac Type Severity Reaction Status Date / Time No Known Allergies Allergy Verified 10/18/16 22:40 - Home Medications Home Medications: Ambulatory Orders Aspirin [ASA -] 81 mg GT DAILY 10/14/16 Budesonide [Pulmicort 0.25 mg Nebulizer -] 1 neb PO BID 10/14/16 Enoxaparin [Lovenox -] 40 mg SQ DAILY 10/14/16 Thyroid [[place] Thyroid] 60 mg PO DAILY 10/14/16 Acetaminophen [Tylenol .Regular Strength -] 650 mg PO Q6H PRN #0 tablet Albuterol 2.5/Ipratropium 0.5 [Duoneb -] 1 amp NEB QIDR amp 10/17/16 Prednisone 10 mg GT DAILY 10/18/16 Piperacillin/Tazob 3.375 gm [Zosyn 3.375GM Ivpb (Pre-Docked)] 50 ml IVPB Q6H-IV bag 11/04/16 Physical Exam-GI Vital Signs: Vital Signs Temperature 98.0 F 11/04/16 09:00 Pulse Rate 76 11/04/16 09:00 Respiratory Rate 20 11/04/16 09:00 Blood Pressure 110/56 11/04/16 09:00 O2 Sat by Pulse Oximetry (%) 94 L 11/04/16 09:00 Constitutional: Yes: Well Nourished Eyes: Yes: Conjunctiva Clear HENT: Yes: Atraumatic Neck: Yes: Supple Cardiovascular: Yes: Regular Rate and Rhythm Respiratory: Yes: CTA Bilaterally Gastrointestinal Inspection: No: Distention ...Palpate: Yes: Soft, Other (the clogged tube was noted to be long possibly a jejunostomy tube, replaced with a Fr 18 replacement tube). No: Firm/Rigid, Guarding, Hepatomegaly, Mass, Pulsatile Mass, Splenomegaly Labs: CBC, BMP 11/03/16 06:35 11/03/16 06:35 INR, PTT INR 1.12 (0.82-1.09) 10/28/16 21:50 Problem List - Problems (1) Malfunctioning jejunostomy tube Assessment/Plan: R>clogged jejunostomy tube pulled out, replaced with a gastrostomy tube. will inform Dr Jewell to change the tube Code(s): K94.13 - ENTEROSTOMY MALFUNCTION
[2016-11-05] MEDS: PIPERACILLIN/TAZOB 3.375 GM 50 ML IVPB SCH ×4 (02:40→21:54)
[2016-11-05] MEDS: AMINO ACIDS/PROTEIN HYDROLYS 30 ML LIQUID.PKT PO SCH ×3 (07:49→16:48)
[2016-11-05] MEDS: THYROID 60 MG TABLET PO SCH (09:06)
[2016-11-05] MEDS: predniSONE 10 MG TABLET (UD) GT SCH (09:07)
[2016-11-05] MEDS: ENOXAPARIN NA (PORCINE) 40 MG/0.4 ML DISP.SYRIN SQ SCH (09:07)
[2016-11-05] MEDS: ASPIRIN 81 MG CHEWABLE TABLETS GT SCH (09:07)
[2016-11-05] MEDS ORDERED: BUDESONIDE 0.5 MG/2 ML INH SUSP VIAL NEB ONE (09:19)
[2016-11-05] MEDS: BUDESONIDE 0.25 MG/2ML INH SUSP VIAL NEB SCH ×2 (09:49→22:31)
--- NOTE | 2016-11-05 10:10 | PN ---
Progress Note, Physician History of Present Illness: feeding tube not working - Current Medication List Current Medications: Active Medications Acetaminophen (Tylenol -) 650 mg PO Q6H PRN PRN Reason: FEVER OR PAIN Amino Acids (Prosource No Carb Liquid Pkt) 30 ml PO BID@0800,1730 [facility] Last Admin: 11/05/16 07:49 Dose: Not Given Aspirin (Asa -) 81 mg GT DAILY [facility] Last Admin: 11/05/16 09:07 Dose: Not Given Budesonide (Pulmicort 0.25 Mg Nebulizer -) 1 amp NEB BID [facility] Last Admin: 11/04/16 22:20 Dose: 1 amp Piperacillin Sod/Tazobactam Sod (Zosyn 3.375gm Ivpb (Pre-Docked)) 50 mls @ 100 mls/hr IVPB Q6H-IV MIRZA PRN Reason: Protocol Last Admin: 11/05/16 08:33 Dose: 100 mls/hr Prednisone (Deltasone -) 10 mg GT DAILY [facility] Last Admin: 11/05/16 09:07 Dose: Not Given Sodium Chloride (Normal Saline -) 250 ml IV Q20M PRN PRN Reason: MAP<65mm Hg OR SBP <90 Last Admin: 10/28/16 22:19 Dose: 250 ml Thyroid ([place] Thyroid -) 60 mg PO DAILY [facility] Last Admin: 11/05/16 09:06 Dose: Not Given - Objective Vital Signs: Vital Signs Temperature 98.4 F 11/05/16 09:08 Pulse Rate 82 11/05/16 09:08 Respiratory Rate 20 11/05/16 09:08 Blood Pressure 108/63 11/05/16 09:08 O2 Sat by Pulse Oximetry (%) 92 L 11/05/16 09:00 Cardiovascular: Yes: S1, S2 Respiratory: Yes: Diminished, Other (on trach) Gastrointestinal: Yes: Normal Bowel Sounds, Soft Labs: CBC, BMP 11/03/16 06:35 11/03/16 06:35 INR, PTT INR 1.12 (0.82-1.09) 10/28/16 21:50 Problem List - Problems (1) Fever Assessment/Plan: RESOLVED DUE TO PNEUMONIA IV ABX PER ID DAY 04/23 ID AND PULM CONSULT Code(s): R50.9 - FEVER, UNSPECIFIED Qualifiers: Fever type: other Qualified Code(s): R50.81 - Fever presenting with conditions classified elsewhere (2) Respiratory failure Assessment/Plan: TRACH MONITOR Code(s): J96.90 - RESPIRATORY FAILURE, UNSP, UNSP W HYPOXIA OR HYPERCAPNIA (3) Muscular dystrophy Assessment/Plan: MONITOR Code(s): G71.0 - MUSCULAR DYSTROPHY (4) A-fib Assessment/Plan: ASA Code(s): I48.91 - UNSPECIFIED ATRIAL FIBRILLATION Qualifiers: Atrial fibrillation type: paroxysmal Qualified Code(s): I48.0 - Paroxysmal atrial fibrillation (5) Malfunctioning jejunostomy tube Assessment/Plan: IR TO REPLACE Code(s): K94.13 - ENTEROSTOMY MALFUNCTION
[2016-11-05] MEDS ORDERED: ALBUTEROL SO4 2.5/IPRATROPIUM 0.5 INH SOL 3 ML VIAL.NEB. NEB PRN (12:13)
--- NOTE | 2016-11-05 12:13 | PN ---
Progress Note, Physician History of Present Illness: pulmonary awake,nad,-dyspnea - Current Medication List Current Medications: Active Medications Acetaminophen (Tylenol -) 650 mg PO Q6H PRN PRN Reason: FEVER OR PAIN Amino Acids (Prosource No Carb Liquid Pkt) 30 ml PO BID@0800,1730 [facility] Last Admin: 11/05/16 07:49 Dose: Not Given Aspirin (Asa -) 81 mg GT DAILY [facility] Last Admin: 11/05/16 09:07 Dose: Not Given Budesonide (Pulmicort 0.25 Mg Nebulizer -) 1 amp NEB BID [facility] Last Admin: 11/05/16 09:49 Dose: 1 amp Piperacillin Sod/Tazobactam Sod (Zosyn 3.375gm Ivpb (Pre-Docked)) 50 mls @ 100 mls/hr IVPB Q6H-IV MIRZA PRN Reason: Protocol Last Admin: 11/05/16 08:33 Dose: 100 mls/hr Prednisone (Deltasone -) 10 mg GT DAILY [facility] Last Admin: 11/05/16 09:07 Dose: Not Given Sodium Chloride (Normal Saline -) 250 ml IV Q20M PRN PRN Reason: MAP<65mm Hg OR SBP <90 Last Admin: 10/28/16 22:19 Dose: 250 ml Thyroid ([place] Thyroid -) 60 mg PO DAILY [facility] Last Admin: 11/05/16 09:06 Dose: Not Given - Objective Vital Signs: Vital Signs Temperature 98.4 F 11/05/16 09:08 Pulse Rate 82 11/05/16 10:48 Respiratory Rate 20 11/05/16 09:08 Blood Pressure 108/63 11/05/16 09:08 O2 Sat by Pulse Oximetry (%) 95 11/05/16 10:48 Constitutional: Yes: Calm, Thin Eyes: Yes: WNL HENT: Yes: WNL Neck: Yes: Supple Cardiovascular: Yes: Pulse Irregular, S1, S2 Respiratory: Yes: Diminished Gastrointestinal: Yes: Normal Bowel Sounds, Soft Extremities: Yes: WNL Edema: No Labs: CBC, BMP 11/03/16 06:35 11/03/16 06:35 INR, PTT INR 1.12 (0.82-1.09) 10/28/16 21:50 Assessment/Plan Problem List - Problems (1) Fever Code(s): R50.9 - FEVER, UNSPECIFIED Qualifiers: Fever type: other Qualified Code(s): R50.81 - Fever presenting with conditions classified elsewhere (2) Muscular dystrophy Code(s): G71.0 - MUSCULAR DYSTROPHY (3) Pleural effusion Code(s): J90 - PLEURAL EFFUSION, NOT ELSEWHERE CLASSIFIED (4) A-fib Code(s): I48.91 - UNSPECIFIED ATRIAL FIBRILLATION Qualifiers: Atrial fibrillation type: paroxysmal Qualified Code(s): I48.0 - Paroxysmal atrial fibrillation (5) Acute on chronic respiratory failure with hypoxia and hypercapnia Code(s): J96.21 - ACUTE AND CHRONIC RESPIRATORY FAILURE WITH HYPOXIA J96.22 - ACUTE AND CHRONIC RESPIRATORY FAILURE WITH HYPERCAPNIA (6) Alteration consciousness Code(s): R40.4 - TRANSIENT ALTERATION OF AWARENESS Assessment/Plan [employer] ANTIBIOT[employer] DR WILEY
[2016-11-06] MEDS: PIPERACILLIN/TAZOB 3.375 GM 50 ML IVPB SCH ×5 (02:51→22:21)
--- NOTE | 2016-11-06 07:58 | DS ---
Physical Examination Vital Signs: Vital Signs Temperature 98.4 F 11/06/16 06:00 Pulse Rate 95 H 11/06/16 06:00 Respiratory Rate 18 11/06/16 06:00 Blood Pressure 109/71 11/06/16 06:00 O2 Sat by Pulse Oximetry (%) 95 11/05/16 10:48 Findings/Remarks: History of Present Illness: 55 year old male from [facility] with significant medical hx of COPD, AFib, muscular dystrophy, CHF, asthma, hypothyroidism, tracheostomy, acute and chronic respiratory failure with hypoxia, GERD, and recent bacterial pneumonia who has been sent to the ED for decreased O2Sat and fever. Patient was found to have O2Sat at 87% and a temperature of 100.1 today. Patient was recently diagnosed with pneumonia (see past chest x-ray below) and is currently on Levaquin 500mg via G Tube daily x 7 days. 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) Cardiovascular: Yes: AFIB, CHF, HTN Musculoskeletal: Yes: Other (muscular dystrophy) Endocrine: Yes: Hypothyroidism Cardiovascular: Yes: S1, S2 Respiratory: Yes: Rhonchi, Other (TRACH COLLAR) Gastrointestinal: Yes: Normal Bowel Sounds, Soft, Other (G-TUBE) Edema: No Labs: CBC, BMP 11/03/16 06:35 11/03/16 06:35 Discharge Summary Reason For Visit: MUSCULAR DYSTROPHY PLEURAL EFFUSION FEVER Current Active Problems Fever (Acute) Malfunctioning jejunostomy tube (Acute) Muscular dystrophy (Acute) Pleural effusion (Acute) Hospital Course: Problems (1) Fever Assessment/Plan: RESOLVED DUE TO PNEUMONIA IV ABX PER ID DAY 05/24 ID AND PULM CONSULT Code(s): R50.9 - FEVER, UNSPECIFIED Qualifiers: Fever type: other Qualified Code(s): R50.81 - Fever presenting with conditions classified elsewhere (2) Respiratory failure Assessment/Plan: TRACH MONITOR Code(s): J96.90 - RESPIRATORY FAILURE, UNSP, UNSP W HYPOXIA OR HYPERCAPNIA (3) Muscular dystrophy Assessment/Plan: MONITOR Code(s): G71.0 - MUSCULAR DYSTROPHY (4) A-fib Assessment/Plan: ASA Code(s): I48.91 - UNSPECIFIED ATRIAL FIBRILLATION Qualifiers: Atrial fibrillation type: paroxysmal Qualified Code(s): I48.0 - Paroxysmal atrial fibrillation (5) Malfunctioning G-tube Assessment/Plan: IR TO REPLACE Code(s): K94.13 - ENTEROSTOMY MALFUNCTION Condition: Stable - Instructions Referrals: Nicholas Layton MD [Primary Care Provider] - - Home Medications Comprehensive Discharge Medication List: Ambulatory Orders Aspirin [ASA -] 81 mg GT DAILY 10/14/16 Budesonide [Pulmicort 0.25 mg Nebulizer -] 1 neb PO BID 10/14/16 Enoxaparin [Lovenox -] 40 mg SQ DAILY 10/14/16 Thyroid [[place] Thyroid] 60 mg PO DAILY 10/14/16 Acetaminophen [Tylenol .Regular Strength -] 650 mg PO Q6H PRN #0 tablet Albuterol 2.5/Ipratropium 0.5 [Duoneb -] 1 amp NEB QIDR amp 10/17/16 Prednisone 10 mg GT DAILY 10/18/16 Piperacillin/Tazob 3.375 gm [Zosyn 3.375GM Ivpb (Pre-Docked)] 50 ml IVPB Q6H-IV bag 11/04/16
[2016-11-06] MEDS: AMINO ACIDS/PROTEIN HYDROLYS 30 ML LIQUID.PKT PO SCH ×2 (08:18→17:02)
[2016-11-06] MEDS: BUDESONIDE 0.25 MG/2ML INH SUSP VIAL NEB SCH ×2 (10:03→22:21)
[2016-11-06] MEDS ORDERED: BUDESONIDE 0.5 MG/2 ML INH SUSP VIAL NEB ONE (10:56)
--- NOTE | 2016-11-06 12:01 | PN ---
Progress Note (short form) - Note Progress Note: PULMONARY Somnolent but arousable. On trach collar. No fevers recorded. Last Vital Signs Temp Pulse Resp BP Pulse Ox 98.4 F 95 H 18 109/71 95 11/06/16 06:00 11/06/16 06:00 11/06/16 06:00 11/06/16 06:00 11/05/16 10:48 Gen: breathing nonlabored Heart: RRR Lung: decreased breath sounds at the bases Abd: soft, nontender Ext: no edema CBC, BMP 11/03/16 06:35 11/03/16 06:35 Active Medications Acetaminophen (Tylenol -) 650 mg PO Q6H PRN PRN Reason: FEVER OR PAIN Albuterol/Ipratropium (Duoneb -) 1 amp NEB Q4H PRN PRN Reason: SHORTNESS OF BREATH Amino Acids (Prosource No Carb Liquid Pkt) 30 ml PO BID@0800,1730 [facility] Last Admin: 11/06/16 08:18 Dose: Not Given Aspirin (Asa -) 81 mg GT DAILY [facility] Last Admin: 11/05/16 09:07 Dose: Not Given Budesonide (Pulmicort 0.25 Mg Nebulizer -) 1 amp NEB BID [facility] Last Admin: 11/05/16 22:31 Dose: 1 amp Enoxaparin Sodium (Lovenox -) 40 mg SQ DAILY [facility] Piperacillin Sod/Tazobactam Sod (Zosyn 3.375gm Ivpb (Pre-Docked)) 50 mls @ 100 mls/hr IVPB Q6H-IV MIRZA PRN Reason: Protocol Last Admin: 11/06/16 11:18 Dose: 100 mls/hr Prednisone (Deltasone -) 10 mg GT DAILY [facility] Last Admin: 11/05/16 09:07 Dose: Not Given Sodium Chloride (Normal Saline -) 250 ml IV Q20M PRN PRN Reason: MAP<65mm Hg OR SBP <90 Last Admin: 10/28/16 22:19 Dose: 250 ml Thyroid ([place] Thyroid -) 60 mg PO DAILY [facility] Last Admin: 11/05/16 09:06 Dose: Not Given A/P Pneumonia COPD Muscular Dystrophy s/p tracheostomy Chronic Hypoxic and Hypercapneic Respiratory Failure Atrial Fibrillation - complete antibiotics - chest PT/pulmonary toilet - aspiration precautions - O2 to keep SPo2 >90% - DVT prophylaxis
[2016-11-06] MEDS: ASPIRIN 81 MG CHEWABLE TABLETS GT SCH (17:01)
[2016-11-06] MEDS: ENOXAPARIN NA (PORCINE) 40 MG/0.4 ML DISP.SYRIN SQ SCH (17:01)
[2016-11-06] MEDS: predniSONE 10 MG TABLET (UD) GT SCH (17:01)
[2016-11-06] MEDS: THYROID 60 MG TABLET PO SCH (17:01)
[2016-11-07] MEDS: PIPERACILLIN/TAZOB 3.375 GM 50 ML IVPB SCH ×2 (02:57→10:43)
[2016-11-07 07:34] VITALS: PULSE 107
--- NOTE | 2016-11-07 08:20 | DS ---
Physical Examination Vital Signs: Vital Signs Temperature 98.7 F 11/07/16 06:00 Pulse Rate 107 H 11/07/16 06:00 Respiratory Rate 20 11/07/16 06:00 Blood Pressure 101/45 11/07/16 06:00 O2 Sat by Pulse Oximetry (%) 96 11/06/16 18:12 Cardiovascular: Yes: Regular Rate and Rhythm Respiratory: Yes: Diminished, Other (TRACH) Gastrointestinal: Yes: Normal Bowel Sounds, Soft, Other (G-TUBE) Labs: CBC, BMP 11/03/16 06:35 11/03/16 06:35 Discharge Summary Reason For Visit: MUSCULAR DYSTROPHY PLEURAL EFFUSION FEVER Current Active Problems Fever (Acute) Malfunctioning jejunostomy tube (Acute) Muscular dystrophy (Acute) Pleural effusion (Acute) Hospital Course: 55 year old male from [facility] with significant medical hx of COPD, AFib, muscular dystrophy, CHF, asthma, hypothyroidism, tracheostomy, acute and chronic respiratory failure with hypoxia, GERD, and recent bacterial pneumonia who has been sent to the ED for decreased O2Sat and fever. Patient was found to have O2Sat at 87% and a temperature of 100.1 today. Patient was recently diagnosed with pneumonia (see past chest x-ray below) and is currently on Levaquin 500mg via G Tube daily x 7 days. 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) Cardiovascular: Yes: AFIB, CHF, HTN Musculoskeletal: Yes: Other (muscular dystrophy) Endocrine: Yes: Hypothyroidism - Smoking History Smoking history: Former smoker Problems (1) Fever Assessment/Plan: RESOLVED DUE TO PNEUMONIA IV ABX PER ID DAY 06/23 ID AND PULM CONSULT Code(s): R50.9 - FEVER, UNSPECIFIED Qualifiers: Fever type: other Qualified Code(s): R50.81 - Fever presenting with conditions classified elsewhere (2) Respiratory failure Assessment/Plan: TRACH MONITOR Code(s): J96.90 - RESPIRATORY FAILURE, UNSP, UNSP W HYPOXIA OR HYPERCAPNIA (3) Muscular dystrophy Assessment/Plan: MONITOR Code(s): G71.0 - MUSCULAR DYSTROPHY (4) A-fib Assessment/Plan: ASA Code(s): I48.91 - UNSPECIFIED ATRIAL FIBRILLATION Qualifiers: Atrial fibrillation type: paroxysmal Qualified Code(s): I48.0 - Paroxysmal atrial fibrillation (5) Malfunctioning G-tube Assessment/Plan: IR TO REPLACED WITH G-J TUBE Code(s): K94.13 - ENTEROSTOMY MALFUNCTION ABNORMAL LFT---MONITOR Condition: Stable - Instructions Referrals: Nicholas Layton MD [Primary Care Provider] - - Home Medications Comprehensive Discharge Medication List: Ambulatory Orders Aspirin [ASA -] 81 mg GT DAILY 10/14/16 Budesonide [Pulmicort 0.25 mg Nebulizer -] 1 neb PO BID 10/14/16 Enoxaparin [Lovenox -] 40 mg SQ DAILY 10/14/16 Thyroid [[place] Thyroid] 60 mg PO DAILY 10/14/16 Acetaminophen [Tylenol .Regular Strength -] 650 mg PO Q6H PRN #0 tablet Albuterol 2.5/Ipratropium 0.5 [Duoneb -] 1 amp NEB QIDR amp 10/17/16 Prednisone 10 mg GT DAILY 10/18/16 Piperacillin/Tazob 3.375 gm [Zosyn 3.375GM Ivpb (Pre-Docked)] 50 ml IVPB Q6H-IV bag 11/04/16
[2016-11-07 08:45] LABS: BASOPHIL 0.3 % (0-2.0); EOSINOPHIL 0.5 % (0-4.5); MCH 26.1 pg (25.7-33.7); MCHC 31.5 g/dl (32.0-35.9); MEAN CELL VOLUME 82.8 fl (80-96); NEUTROPHILS 81.4 % (42.8-82.8); PLATELET COUNT 188 K/MM3 (134-434); WHITE BLOOD COUNT 8.6 K/mm3 (4.0-10.0)
[2016-11-07] MEDS: AMINO ACIDS/PROTEIN HYDROLYS 30 ML LIQUID.PKT PO SCH (09:00)
[2016-11-07 09:12] LABS: ALBUMIN 2.8 g/dl (3.4-5.0); ALK PHOS 90 U/L (45-117); ANION GAP 6 (8-16); BILIRUBIN,TOTAL 0.4 mg/dL (0.2-1.0); CALCIUM 8.8 mg/dL (8.5-10.1); CO2 40 mmol/L (21-32); CREATININE 0.4 mg/dL (0.7-1.3); GLUCOSE,RANDOM 101 mg/dL (74-106); SGOT/AST 43 U/L (15-37); SGPT/ALT 101 U/L (12-78); TOT PROT 6.4 g/dl (6.4-8.2)
[2016-11-07] MEDS: BUDESONIDE 0.25 MG/2ML INH SUSP VIAL NEB SCH (10:50)
[2016-11-07] MEDS: ENOXAPARIN NA (PORCINE) 40 MG/0.4 ML DISP.SYRIN SQ SCH (11:05)
[2016-11-07] MEDS: predniSONE 10 MG TABLET (UD) GT SCH (11:05)
[2016-11-07] MEDS: ASPIRIN 81 MG CHEWABLE TABLETS GT SCH (11:05)
[2016-11-07] MEDS: THYROID 60 MG TABLET PO SCH (11:05)
[2016-11-07 11:31] VITALS: BP 102/66; TEMP 98.5
== END 2016-11-07 14:32 | DRG 981 ==
LOC: JER 21:07 → JERBED 10-29 00:27 → UNDOADMOB 10-29 00:50 → J8W 10-29 02:59 → J5S 10-29 10:45 → OBSVTOIN 10-29 10:48
PROVIDERS: ADMIT Family Medicine; ATTEND Family Medicine
PROC: 0DH63UZ Insertion of Feeding Device into Stomach, Percutaneous Approach (ICD-10-PCS; principal; 2016-11-07)
PROC: 0DP63UZ Removal of Feeding Device from Stomach, Percutaneous Approach (ICD-10-PCS; 2016-11-07)
PROC: BD12YZZ Fluoroscopy of Stomach using Other Contrast (ICD-10-PCS; 2016-11-07)
DX: J96.21 Acute and chronic respiratory failure with hypoxia (principal); J18.9 Pneumonia, unspecified organism; K94.23 Gastrostomy malfunction; G71.0 Muscular dystrophy; J90 Pleural effusion, not elsewhere classified; J44.1 Chronic obstructive pulmonary disease with (acute) exacerbation; J96.22 Acute and chronic respiratory failure with hypercapnia; K21.9 Gastro-esophageal reflux disease without esophagitis; E03.9 Hypothyroidism, unspecified; I48.0 Paroxysmal atrial fibrillation; Y83.9 Surgical procedure, unspecified as the cause of abnormal reaction of the patient, or of later complication, without mention of misadventure at the time of the procedure; Z87.891 Personal history of nicotine dependence; I50.9 Heart failure, unspecified; Z93.0 Tracheostomy status
CPT/HCPCS: 36415; 36600; 49440; 71010-TC; 71250-TC; 74000-TC; 80053; 81003; 82550; 82803; 83605; 83735; 84484; 85025; 85610; 85730; 86850; 86900; 86901; 87040; 87070; 87086; 87186; 87205; 87254; 87804; 87899; 93005; 93010; 94640; 99283-25; C1769; C1887; G0378